=== PATIENT | female | born 1945 | race Caucasian/White ===

== ENCOUNTER 2017-12-27 14:52 | Inpatient (IN) | payer MEDICARE, BC ==
[2017-12-27] VITALS (9 sets, daily range): BP systolic 152–200; BP diastolic 54–89; PULSE 63–78; RESP 15–18; TEMP 97.6–98.6; O2SAT 96–99
[~2017-12-27] VITALS: Ht 162.6 cm; Wt 80.4 kg
[2017-12-27] MEDS ORDERED: FLUD.1 PO (15:32)
[2017-12-27] MEDS ORDERED: LEVO88TA30 PO (15:32)
[2017-12-27] MEDS ORDERED: AMLO2.5T PO (15:32)
[2017-12-27] MEDS ORDERED: ALLO300T2 PO (15:32)
[2017-12-27] MEDS ORDERED: HYDR20TA PO (15:32)
--- NOTE | 2017-12-27 15:35 | PD ---
HPI Chief Complaint: Chest Pain Time Seen by Provider: 15:10 Travel History International Travel<30 days: No Contact w/Intl Traveler<30days: No History of Present Illness HPI 72-year-old female presents to the emergency department complaining of midsternal chest pain that radiates to the back and left arm that started approximately 1-1/2 weeks ago. States that today it worsened and is now constant which is why she presents to the emergency department. States that she she did go to urgent care who recommended she come here to the emergency department. States that deep breaths increases her pain and nothing seems to relieve it. Patient describes the pain as heavy. Patient was given aspirin at the urgent care which seemed to help relieve some of her pain. Patient denies nausea, vomiting, abdominal pain. Patient denies history of clots. Patient does have a history of lung cancer status post lobectomy and a remote history of renal cancer. States that she "does not have any adrenal glands". PFSH Past Medical History Hx Anticoagulant Therapy: No Cardiovascular Problems: Yes (HTN ) Diabetes: No Social History Tobacco Use: No Allergies-Medications (Allergen,Severity, Reaction): Coded Allergies: No Known Allergies (Unverified , 12/27/17) Reported Meds & Prescriptions Reported Meds & Active Scripts Active Reported Allopurinol 300 Mg Tab 300 Mg PO DAILY Amlodipine (Amlodipine Besylate) 2.5 Mg Tab 2.5 Mg PO DAILY Fludrocortisone (Fludrocortisone Acetate) 0.1 Mg Tab 0.1 Mg PO DAILY Hydrocortisone 20 Mg Tab 20 Mg PO DAILY Take with food to decrease GI upset Levoxyl (Levothyroxine Sodium) 88 Mcg Tab 88 Mcg PO DAILY Review of Systems Except as stated in HPI: all other systems reviewed are Neg Physical Exam Narrative GENERAL: Well-developed, well-nourished, lying comfortably in bed SKIN: Warm and dry. HEAD: Atraumatic. Normocephalic. EYES: Pupils equal and round. No scleral icterus. No injection or drainage. ENT: No nasal bleeding or discharge. Mucous membranes pink and moist. NECK: Trachea midline. No JVD. CARDIOVASCULAR: Regular rate and rhythm. RESPIRATORY: No accessory muscle use. Clear to auscultation. Breath sounds equal bilaterally. GASTROINTESTINAL: Abdomen soft, non-tender, nondistended. Hepatic and splenic margins not palpable. MUSCULOSKELETAL: Extremities without clubbing, cyanosis, or edema. No obvious deformities. Mild TTP to chest wall with palpation NEUROLOGICAL: Awake and alert. No obvious cranial nerve deficits. Motor grossly within normal limits. Five out of 5 muscle strength in the arms and legs. Normal speech. PSYCHIATRIC: Appropriate mood and affect; insight and judgment normal. Data Data Last Documented VS Vital Signs Date Time Temp Pulse Resp B/P (MAP) Pulse Ox O2 Delivery O2 Flow Rate FiO2 12/27/17 19:03 185/89 (121) 12/27/17 18:12 74 18 97 12/27/17 15:30 Room Air 12/27/17 15:[address] Pulmonary Angiogram (12/27/17 ) Electrocardiogram (12/27/17 15:18) Ckmb (Isoenzyme) Profile (12/27/17 15:18) Complete Blood Count With Diff (12/27/17 15:18) Comprehensive Metabolic Panel (12/27/17 15:18) D-Dimer (12/27/17 15:18) Prothrombin Time / Inr (Pt) (12/27/17 15:18) Act Partial Throm Time (Ptt) (12/27/17 15:18) Troponin I (12/27/17 15:18) Lipase (12/27/17 15:18) Ecg Monitoring (12/27/17 15:18) Oximetry (12/27/17 15:18) Iohexol 350 Inj (Omnipaque 350 Inj) (12/27/17 17:38) Amlodipine (Norvasc) (12/27/17 18:45) Hydrocortisone (Cortef) (12/27/17 19:15) Hydrocortisone (Cortef) (12/27/17 19:15) Activity Bed Rest With Brp (12/27/17 19:17) Vital Signs (Adult) Q4H (12/27/17 19:17) Cardiac Rhythm .As Directed (12/27/17 19:17) Notify Dr: Other .PRN (12/27/17 19:17) Notify Parameters (12/27/17 19:17) Resp Oxygen Nasal Cannula (12/27/17 ) Ckmb (Isoenzyme) Profile (12/27/17 19:19) Ckmb (Isoenzyme) Profile (12/27/17 22:19) Troponin I (12/27/17 19:17) Troponin I (12/27/17 22:17) Electrocardiogram (12/27/17 19:17) Electrocardiogram (12/27/17 22:17) ^ Obtain (12/27/17 19:17) Sodium Chloride 0.9% Flush (Ns Flush) (12/27/17 19:30) Sodium Chloride 0.9% Flush (Ns Flush) (12/27/17 21:00) Acetaminophen (Tylenol) (12/27/17 19:30) Drill Operator Pneumatic / Telemetry KATELYNN.Q8H (12/27/17 19:17) Admit Order (Ed Use Only) (12/27/17 19:17) Labs Laboratory Tests Test 12/27/17 15:45 White Blood Count 6.9 TH/MM3 Red Blood Count 4.34 MIL/MM3 Hemoglobin 13.5 GM/DL Hematocrit 39.7 % Mean Corpuscular Volume 91.4 FL Mean Corpuscular Hemoglobin 31.1 PG Mean Corpuscular Hemoglobin Concent 34.0 % Red Cell Distribution Width 13.7 % Platelet Count 186 TH/MM3 Mean Platelet Volume 8.5 FL Neutrophils (%) (Auto) 65.7 % Lymphocytes (%) (Auto) 26.3 % Monocytes (%) (Auto) 6.3 % Eosinophils (%) (Auto) 1.1 % Basophils (%) (Auto) 0.6 % Neutrophils # (Auto) 4.5 TH/MM3 Lymphocytes # (Auto) 1.8 TH/MM3 Monocytes # (Auto) 0.4 TH/MM3 Eosinophils # (Auto) 0.1 TH/MM3 Basophils # (Auto) 0.0 TH/MM3 CBC Comment DIFF FINAL Differential Comment Prothrombin Time 10.1 SEC Prothromb Time International Ratio 1.0 RATIO Activated Partial Thromboplast Time 25.0 SEC D-Dimer Quantitative (PE/DVT) 0.54 MG/L FEU Blood Urea Nitrogen 24 MG/DL Creatinine 1.26 MG/DL Random Glucose 108 MG/DL Total Protein 7.9 GM/DL Albumin 3.8 GM/DL Calcium Level 9.5 MG/DL Alkaline Phosphatase 74 U/L Aspartate Amino Transf (AST/SGOT) 21 U/L Alanine Aminotransferase (ALT/SGPT) 16 U/L Total Bilirubin 0.3 MG/DL Sodium Level 138 MEQ/L Potassium Level 4.2 MEQ/L Chloride Level 102 MEQ/L Carbon Dioxide Level 29.8 MEQ/L Anion Gap 6 MEQ/L Estimat Glomerular Filtration Rate 42 ML/MIN Total Creatine Kinase 73 U/L Troponin I 0.02 NG/ML Lipase 152 U/L MDM Medical Decision Making Medical Screen Exam Complete: Yes Emergency Medical Condition: Yes Differential Diagnosis Aortic aneurysm, dissection, NSTEMI, atypical chest pain, angina Narrative Course 72-year-old female presents to the emergency department complaining of midsternal chest pain that radiates to the back and left arm that started approximately 1-1/2 weeks ago. States that today it worsened and is now constant which is why she presents to the emergency department. States that she she did go to urgent care who recommended she come here to the emergency department. States that deep breaths increases her pain and nothing seems to relieve it. Patient describes the pain as heavy. Patient was given aspirin at the urgent care which seemed to help relieve some of her pain. Patient denies nausea, vomiting, abdominal pain. Patient denies history of clots. Patient does have a history of lung cancer status post lobectomy and a remote history of renal cancer. States that she "does not have any adrenal glands". Vital signs-blood pressure steadily elevated as patient was due for her blood pressure medications. Amlodipine administered and blood pressure normalized. Physical exam findings essentially unremarkable. EKG shows sinus rhythm My concerns of the patient's regarding her diagnosis. States that she was concerned about the back pain that she was having and the urgent care mentioned concern of the aorta. I explained that this is why I ordered a CT pulmonary angiography study. I answered all questions and advised to proceed with the imaging study as this would be the most definitive and high yield for our diagnoses. Last Impressions CT Angiography 12/27/17 0000 Signed Impressions: Service Date/Time: Wednesday, December 27, 2017 17:28 - CONCLUSION: 1. No acute cardiopulmonary disease. 2. Coronary artery atherosclerotic calcifications. Stevie Ralph Jr., MD Cardiac enzymes negative. Laboratory Tests Test 12/27/17 15:45 White Blood Count 6.9 TH/MM3 Red Blood Count 4.34 MIL/MM3 Hemoglobin 13.5 GM/DL Hematocrit 39.7 % Mean Corpuscular Volume 91.4 FL Mean Corpuscular Hemoglobin 31.1 PG Mean Corpuscular Hemoglobin Concent 34.0 % Red Cell Distribution Width 13.7 % Platelet Count 186 TH/MM3 Mean Platelet Volume 8.5 FL Neutrophils (%) (Auto) 65.7 % Lymphocytes (%) (Auto) 26.3 % Monocytes (%) (Auto) 6.3 % Eosinophils (%) (Auto) 1.1 % Basophils (%) (Auto) 0.6 % Neutrophils # (Auto) 4.5 TH/MM3 Lymphocytes # (Auto) 1.8 TH/MM3 Monocytes # (Auto) 0.4 TH/MM3 Eosinophils # (Auto) 0.1 TH/MM3 Basophils # (Auto) 0.0 TH/MM3 CBC Comment DIFF FINAL Differential Comment Prothrombin Time 10.1 SEC Prothromb Time International Ratio 1.0 RATIO Activated Partial Thromboplast Time 25.0 SEC D-Dimer Quantitative (PE/DVT) 0.54 MG/L FEU Blood Urea Nitrogen 24 MG/DL Creatinine 1.26 MG/DL Random Glucose 108 MG/DL Total Protein 7.9 GM/DL Albumin 3.8 GM/DL Calcium Level 9.5 MG/DL Alkaline Phosphatase 74 U/L Aspartate Amino Transf (AST/SGOT) 21 U/L Alanine Aminotransferase (ALT/SGPT) 16 U/L Total Bilirubin 0.3 MG/DL Sodium Level 138 MEQ/L Potassium Level 4.2 MEQ/L Chloride Level 102 MEQ/L Carbon Dioxide Level 29.8 MEQ/L Anion Gap 6 MEQ/L Estimat Glomerular Filtration Rate 42 ML/MIN Total Creatine Kinase 73 U/L Troponin I 0.02 NG/ML Lipase 152 U/L Patient took an aspirin today. I once again explained the need for labs and additional monitoring. I explained in depth the findings of the CT pulmonary angiogram and the lab findings. I agreed to allow the patient to have her results although I stated that this was not the normal process of obtaining records. After thorough discussion and convincing, patient agrees to be admitted for observation of the chest pain center. I explained the need for this as they may perform additional tests to rule out further cardiac disease. I once again explained that the CT demonstrated coronary artery calcifications and this could be the cause of her pain. Patient was concerned because her is in the home status post CVA. Patient states understanding of all the information above and agrees for admission to the [facility]. Second troponin read elevated. Pt will be admitted to Dr. Garcia. Diagnosis Primary Impression: Non-STEMI (non-ST elevated myocardial infarction) Admitting Information Admitting Physician Requests: Observation Condition: Stable Brunilda Brito Dec 27, 2017 15:35
[2017-12-27 16:25] LABS: AUTOMATED NEUTROPHIL # 4.5 TH/MM3 (1.8-7.7); BASOPHIL % 0.6 % (0.0-2.0); EOSINOPHIL # 0.1 TH/MM3 (0-0.4); EOSINOPHIL % 1.1 % (0.0-4.0); HEMATOCRIT 39.7 % (35.0-46.0); HEMOGLOBIN 13.5 GM/DL (11.6-15.3); LYMPH % 26.3 % (9.0-44.0); LYMPHOCYTE # 1.8 TH/MM3 (1.0-4.8); MEAN CELL VOLUME 91.4 FL (80.0-100.0); MEAN CORPUSCULAR HEMOGLOBIN 31.1 PG (27.0-34.0); MEAN PLATELET VOLUME 8.5 FL (7.0-11.0); MONO % 6.3 % (0.0-8.0); MONOCYTE # 0.4 TH/MM3 (0-0.9); NEUT % 65.7 % (16.0-70.0); PLATELET COUNT 186 TH/MM3 (150-450); RED BLOOD COUNT 4.34 MIL/MM3 (4.00-5.30); RED CELL DISTRIBUTION WIDTH 13.7 % (11.6-17.2); WHITE BLOOD COUNT 6.9 TH/MM3 (4.0-11.0)
[2017-12-27 16:39] LABS: PROTHROMBIN TIME - PATIENT 10.1 SEC (9.8-11.6)
[2017-12-27 16:44] LABS: ALBUMIN 3.8 GM/DL (3.4-5.0); ALT (GPT) 16 U/L (10-53); AST (GOT) 21 U/L (15-37); BICARBONATE 29.8 MEQ/L (21.0-32.0); BLOOD UREA NITROGEN 24 MG/DL (7-18); CALCIUM 9.5 MG/DL (8.5-10.1); CHLORIDE 102 MEQ/L (98-107); CREATININE 1.26 MG/DL (0.50-1.00); GLOMERULAR FILTRATION RATE 42 ML/MIN (>89); GLUCOSE,RANDOM 108 MG/DL (74-106); SODIUM (NA) 138 MEQ/L (136-145)
[2017-12-27 16:48] LABS: ALKALINE PHOSPHATASE 74 U/L (45-117); TOTAL BILIRUBIN ADULT 0.3 MG/DL (0.2-1.0); TOTAL PROTEIN 7.9 GM/DL (6.4-8.2); TROPONIN I 0.02 NG/ML (0.02-0.05)
[2017-12-27 16:52] LABS: D-DIMER 0.54 MG/L FEU (0.00-0.50)
[2017-12-27] MEDS ORDERED: IOHEXOL 350 MG/ML 10 ML VIAL (for RAD DIAG) IVCONTRAST ONE (17:38)
--- NOTE | 2017-12-27 17:43 | RADRPT ---
EXAM DATE/TIME: 12/27/2017 17:28 [place] COMPARISON: No previous studies available for comparison. INDICATIONS : Chest pain, elevated d dimer. IV CONTRAST: 75 cc Omnipaque 350 (iohexol) IV RADIATION DOSE: 21.10 CTDIvol (mGy) MEDICAL HISTORY : Hypertension. Carcinoma, lung. CA KIDNEY SURGICAL HISTORY : Nephrectomy, left. Appendectomy.Cholecystectomy.Rt adrenal ENCOUNTER: Initial ACUITY: 1 day PAIN SCALE: 6/10 LOCATION: Chest TECHNIQUE: Volumetric scanning of the chest was performed using a pulmonary embolism protocol MIP images were re constructed. Using automated exposure control and adjustment of the mA and/or kV according to patien t size, radiation dose was kept as low as reasonably achievable to obtain optimal diagnostic quality images. DICOM format image data is available electronically for review and comparison. Follow-up recommendations for detected pulmonary nodules are based at a minimum on nodule size and pa tient risk factors according to Fleischner Society Guidelines. FINDINGS: PULMONARY ARTERIES: No filling defects are seen in the pulmonary arteries through the segmental level. LUNGS: There is no consolidation or pneumothorax . No concerning pulmonary nodule is visualized. Surgical c lips and linear scarring within the medial right lung base. PLEURAE: There is no pleural thickening or pleural effusion. MEDIASTINUM: There is good visualization of the great vessels of the middle mediastinum. Coronary artery atheroscl erotic calcifications. No evidence of mediastinal or hilar adenopathy/mass. MUSCULOSKELETAL: Within normal limits for patient age. MISCELLANEOUS: The visualized upper abdominal organs demonstrate no acute abnormality. CONCLUSION: 1. No acute cardiopulmonary disease. 2. Coronary artery atherosclerotic calcifications. Stevie Ralph Jr., MD on December 27, 2017 at 17:37 Board Certified Radiologist. This report was verified electronically.
[2017-12-27] MEDS ORDERED: amLODIPine BESYLATE 5 MG TAB PO ONE (18:45)
[2017-12-27] MEDS ORDERED: HYDROCORTISONE 10 MG TAB PO ONE ×2 (19:15)
[2017-12-27] MEDS ORDERED: ACETAMINOPHEN 500 MG CPLT PO PRN (19:30)
[2017-12-27] MEDS ORDERED: SODIUM CHLORIDE 0.9% FLUSH 10 ML FLUSH IV FLUSH PRN ×2 (19:30→21:30)
[2017-12-27 20:28] LABS: TROPONIN I 0.12 NG/ML (0.02-0.05)
[2017-12-27] MEDS ORDERED: SODIUM CHLORIDE 0.9% FLUSH 10 ML FLUSH IV FLUSH SCH (21:00)
[2017-12-27] MEDS ORDERED: HEPARIN SODIUM - IV 10,000 UNITS/10 ML VIAL IV ONE (21:15)
[2017-12-27] MEDS ORDERED: MORPHINE SULFATE 2 MG/ML INJ IV PUSH PRN (21:30)
[2017-12-27] MEDS: HEPARIN-D5W 25,000 U/250 ML 250 ML IV PRN (21:51)
[2017-12-27 22:11] LABS: HEMATOCRIT 37.8 % (35.0-46.0); HEMOGLOBIN 12.7 GM/DL (11.6-15.3); MEAN CELL VOLUME 90.5 FL (80.0-100.0); MEAN CORPUSCULAR HEMOGLOBIN 30.5 PG (27.0-34.0); MEAN CORPUSCULAR HGB CONC 33.7 % (32.0-36.0); MEAN PLATELET VOLUME 8.2 FL (7.0-11.0); PLATELET COUNT 184 TH/MM3 (150-450); RED BLOOD COUNT 4.17 MIL/MM3 (4.00-5.30); RED CELL DISTRIBUTION WIDTH 13.8 % (11.6-17.2); WHITE BLOOD COUNT 5.7 TH/MM3 (4.0-11.0)
[2017-12-27] MEDS: HYDROCORTISONE 10 MG TAB PO SCH (22:15)
[2017-12-27] MEDS: SODIUM CHLOR 0.9% 1000 ML INJ 1,000 ML IV SCH (22:17)
--- NOTE | 2017-12-27 22:18 | HHI.HP ---
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 The patient endorses substernal chest pain/pressure that radiates to between her shoulder blades for the past 1.5 weeks. She states it is normally intermittent but today it became progressively much worse. She endorses accompanying shortness of breath. Denies diaphoresis. Denies fever/ chills or systemic symptoms. Review of Systems Except as stated in HPI: all other systems reviewed are Neg Past Family Social History Past Medical History Primary adrenal insufficiency secondary to bilateral adrenalectomy History of renal cell carcinoma Hypertension Hypothyroid Gout Past Surgical History Left nephrectomy Bilateral adrenalectomy Right lung nodule removal Cholecystectomy Appendectomy Hernia repair Reported Medications Reported Meds & Active Scripts Active Reported Allopurinol 300 Mg Tab 300 Mg PO DAILY Amlodipine (Amlodipine Besylate) 2.5 Mg Tab 2.5 Mg PO DAILY Fludrocortisone (Fludrocortisone Acetate) 0.1 Mg Tab 0.1 Mg PO DAILY Hydrocortisone 20 Mg Tab 20 Mg PO DAILY Take with food to decrease GI upset Levoxyl (Levothyroxine Sodium) 88 Mcg Tab 88 Mcg PO DAILY Allergies: Coded Allergies: No Known Allergies (Unverified , 12/27/17) Family History Father with CAD, of MA at age 52 Social History Denies alcohol, tobacco and illicit drugs. Physical Exam Vital Signs Vital Signs Date Time Temp Pulse Resp B/P (MAP) Pulse Ox O2 Delivery O2 Flow Rate FiO2 12/27/17 21:52 12/27/17 20:28 66 16 174/54 (94) 97 12/27/17 19:57 97 21 12/27/17 19:03 185/89 (121) 12/27/17 18:12 74 18 200/80 (120) 97 12/27/17 15:30 Room Air 2/2/18 15:15 74 18 163/80 (107) 98 Room Air 12/27/17 15:08 98.2 76 15 163/80 (107) 97 12/27/17 14:56 98.2 78 18 183/81 (115) 99 Room Air Physical Exam GENERAL: female sitting up in bed SKIN: No rashes, ecchymoses or lesions. Cool and dry. HEAD: Atraumatic. Normocephalic. No temporal or scalp tenderness. EYES: Pupils equal round and reactive. Extraocular motions intact. No scleral icterus. No injection or drainage. ENT: Nose without bleeding, purulent drainage or septal hematoma. Throat without erythema, tonsillar hypertrophy or exudate. Uvula midline. Airway patent. NECK: Trachea midline. No JVD or lymphadenopathy. Supple, nontender, no meningeal signs. CARDIOVASCULAR: Regular rate and rhythm without murmurs, gallops, or rubs. RESPIRATORY: Clear to auscultation. Breath sounds equal bilaterally. No wheezes , rales, or rhonchi. GASTROINTESTINAL: Abdomen soft, non-tender, nondistended. No hepato-splenomegaly , or palpable masses. No guarding. MUSCULOSKELETAL: Extremities without clubbing, cyanosis, or edema. No joint tenderness, effusion, or edema noted. No calf tenderness. NEUROLOGICAL: Awake and alert. Cranial nerves II through XII intact. Motor and sensory grossly within normal limits. Normal speech. Laboratory Laboratory Tests Test 12/27/17 15:45 12/27/17 19:41 12/27/17 21:50 White Blood Count 6.9 5.7 Red Blood Count 4.34 4.17 Hemoglobin 13.5 12.7 Hematocrit 39.7 37.8 Mean Corpuscular Volume 91.4 90.5 Mean Corpuscular Hemoglobin 31.1 30.5 Mean Corpuscular Hemoglobin Concent 34.0 33.7 Red Cell Distribution Width 13.7 13.8 Platelet Count 186 184 Mean Platelet Volume 8.5 8.2 Neutrophils (%) (Auto) 65.7 Lymphocytes (%) (Auto) 26.3 Monocytes (%) (Auto) 6.3 Eosinophils (%) (Auto) 1.1 Basophils (%) (Auto) 0.6 Neutrophils # (Auto) 4.5 Lymphocytes # (Auto) 1.8 Monocytes # (Auto) 0.4 Eosinophils # (Auto) 0.1 Basophils # (Auto) 0.0 CBC Comment DIFF FINAL Differential Comment Prothrombin Time 10.1 Prothromb Time International Ratio 1.0 Activated Partial Thromboplast Time 25.0 D-Dimer Quantitative (PE/DVT) 0.54 Blood Urea Nitrogen 24 Creatinine 1.26 Random Glucose 108 Total Protein 7.9 Albumin 3.8 Calcium Level 9.5 Alkaline Phosphatase 74 Aspartate Amino Transf (AST/SGOT) 21 Alanine Aminotransferase (ALT/SGPT) 16 Total Bilirubin 0.3 Sodium Level 138 Potassium Level 4.2 Chloride Level 102 Carbon Dioxide Level 29.8 Anion Gap 6 Estimat Glomerular Filtration Rate 42 Total Creatine Kinase 73 66 Troponin I 0.02 0.12 Lipase 152 Result Diagram: 12/27/17 1545 12/27/17 1545 Caprini VTE Risk Assessment Caprini VTE Risk Assessment: Mod/High Risk (score >= 2) Caprini Risk Assessment Model Point Value = 1 Point Value = 2 Point Value = 3 Point Value = 5 Age 41-60 Minor surgery BMI > 25 kg/m2 Swollen legs Varicose veins or History of unexplained or recurrent spontaneous Oral contraceptives or hormone replacement Sepsis (< 1 month) Serious lung disease, including pneumonia (< 1 month) Abnormal pulmonary function Acute myocardial infarction Congestive heart failure (< 1 month) History of inflammatory bowel disease Medical patient at bed rest Age 61-74 Arthroscopic surgery Major open surgery (> 45 min) Laparoscopic surgery (> 45 min) Malignancy Confined to bed (> 72 hours) Immobilizing plaster cast Central venous access Age >= 75 History of VTE Family history of VTE Factor V Leiden Prothrombin [id number] Lupus anticoagulant Anticardiolipin antibodies Elevated serum homocysteine Heparin-induced thrombocytopenia Other congenital or acquired thrombophilia Stroke (< 1 month) Elective arthroplasty Hip, pelvis, or leg fracture Acute spinal cord injury (< 1 month) Prophylaxis Regimen Total Risk Factor Score Risk Level Prophylaxis Regimen 0-1 Low Early ambulation 2 Moderate Order ONE of the following: *Sequential Compression Device (SCD) *Heparin 5000 units SQ BID 3-4 Higher Order ONE of the following medications: *Heparin 5000 units SQ TID *Enoxaparin/Lovenox 40 mg SQ daily (WT < 150 kg, CrCl > 30 mL/min) *Enoxaparin/Lovenox 30 mg SQ daily (WT < 150 kg, CrCl > 10-29 mL/min) *Enoxaparin/Lovenox 30 mg SQ BID (WT < 150 kg, CrCl > 30 mL/min) AND/OR *Sequential Compression Device (SCD) 5 or more Highest Order ONE of the following medications: *Heparin 5000 units SQ TID (Preferred with Epidurals) *Enoxaparin/Lovenox 40 mg SQ daily (WT < 150 kg, CrCl > 30 mL/min) *Enoxaparin/Lovenox 30 mg SQ daily (WT < 150 kg, CrCl > 10-29 mL/min) *Enoxaparin/Lovenox 30 mg SQ BID (WT < 150 kg, CrCl > 30 mL/min) AND *Sequential Compression Device (SCD) Assessment and Plan Assessment and Plan Assessment/plan: 1. NSTEMI/CP/SOB Initial troponin 0.02, repeat 0.12 Issue with active chest pain that radiates to her back EKG shows normal sinus rhythm without ST segment elevations or depressions, personally reviewed Heparin drip Aspirin, Plavix, metoprolol, morphine Cardiology consulted, appreciate recommendations 2. Primary adrenal insufficiency Patient status post bilateral adrenalectomy Home medications include hydrocortisone and fludrocortisone Given patient is having unstable angina versus [place] will give stress dose steroids ; hydrocortisone 100 mg by mouth every 8 hours 3. CKD Patient status post left nephrectomy, baseline creatinine unknown Creatinine 1.26 Avoid nephrotoxic agents Monitor renal function 4. Hypertension/hypothyroidism Continue home medication FEN NPO Physician Certification 2 Midnight Certification Type: Admission for Inpatient Services Order for Inpatient Services The services are ordered in accordance with Medicare regulations or non- Medicare payer requirements, as applicable. In the case of services not specified as inpatient-only, they are appropriately provided as inpatient services in accordance with the 2-midnight benchmark. Estimated LOS (days): 2 2 days is the estimated time the patient will need to remain in the hospital, assuming treatment plan goals are met and no additional complications. Post-Hospital Plan: Not yet determined Yen Garcia MD Dec 27, 2017 22:18
[2017-12-27 22:20] LABS: PROTHROMBIN TIME - PATIENT 10.2 SEC (9.8-11.6)
[2017-12-27 22:29] LABS: TROPONIN I 0.15 NG/ML (0.02-0.05)
[2017-12-27] MEDS: ASPIRIN 325 MG TAB PO SCH (22:39)
[2017-12-27] MEDS: CLOPIDOGREL 75 MG TAB PO SCH (22:39)
[2017-12-28] VITALS (8 sets, daily range): BP systolic 112–152; BP diastolic 55–84; PULSE 63–70; RESP 16–20; TEMP 97.6–98.4; O2SAT 93–98
[2017-12-28] MEDS ORDERED: HEPARIN SODIUM - IV 10,000 UNITS/10 ML VIAL IV PRN ×2 (03:15)
[2017-12-28 05:02] LABS: AUTOMATED NEUTROPHIL # 3.1 TH/MM3 (1.8-7.7); BASOPHIL % 0.5 % (0.0-2.0); EOSINOPHIL # 0.1 TH/MM3 (0-0.4); EOSINOPHIL % 2.1 % (0.0-4.0); HEMATOCRIT 38.1 % (35.0-46.0); HEMOGLOBIN 12.9 GM/DL (11.6-15.3); LYMPH % 36.7 % (9.0-44.0); LYMPHOCYTE # 2.1 TH/MM3 (1.0-4.8); MEAN CELL VOLUME 90.5 FL (80.0-100.0); MEAN CORPUSCULAR HEMOGLOBIN 30.5 PG (27.0-34.0); MEAN CORPUSCULAR HGB CONC 33.7 % (32.0-36.0); MEAN PLATELET VOLUME 8.7 FL (7.0-11.0); MONO % 7.9 % (0.0-8.0); MONOCYTE # 0.5 TH/MM3 (0-0.9); NEUT % 52.8 % (16.0-70.0); PLATELET COUNT 180 TH/MM3 (150-450); RED BLOOD COUNT 4.21 MIL/MM3 (4.00-5.30); WHITE BLOOD COUNT 5.8 TH/MM3 (4.0-11.0)
[2017-12-28 05:51] LABS: CALCIUM 8.7 MG/DL (8.5-10.1); CREATININE 1.01 MG/DL (0.50-1.00)
[2017-12-28] MEDS: NITROGLYCERIN 2% OINT 1 GM PACKET TOP SCH ×5 (06:00→23:36)
[2017-12-28] MEDS: HYDROCORTISONE 10 MG TAB PO SCH ×3 (06:00→20:54)
[2017-12-28] MEDS: LEVOTHYROXINE SODIUM 88 MCG TAB PO SCH (06:17)
[2017-12-28] MEDS: SODIUM CHLORIDE 0.9% FLUSH 10 ML FLUSH IV FLUSH SCH ×2 (07:21→20:47)
[2017-12-28] MEDS: ALLOPURINOL 300 MG TAB PO SCH (08:38)
[2017-12-28] MEDS: METOPROLOL TARTRATE 25 MG TAB PO SCH ×2 (08:38→20:47)
[2017-12-28] MEDS: FLUDROCORTISONE ACETATE 0.1 MG TAB PO SCH (08:38)
[2017-12-28] MEDS: amLODIPine BESYLATE 5 MG TAB PO SCH (08:39)
[2017-12-28] MEDS: SODIUM CHLOR 0.9% 1000 ML INJ 1,000 ML IV SCH ×4 (08:39→23:00)
[2017-12-28] MEDS: ASPIRIN 325 MG TAB PO SCH (08:39)
[2017-12-28] MEDS: PANTOPRAZOLE SOD 40 MG DELAYED RELEASE TAB PO SCH (08:39)
[2017-12-28] MEDS: CLOPIDOGREL 75 MG TAB PO SCH (08:39)
[2017-12-28] MEDS ORDERED: HYDROCORTISONE 10 MG TAB PO SCH (09:00)
[2017-12-28] MEDS: ACETAMINOPHEN 500 MG CPLT PO PRN (09:31)
--- NOTE | 2017-12-28 12:36 | HHI.PR ---
Subjective Remarks Patient says she is feeling all right. Reports chest pain has resolved. Objective Vital Signs Date Time Temp Pulse Resp B/P (MAP) Pulse Ox O2 Delivery O2 Flow Rate FiO2 12/28/17 10:04 97 12/28/17 08:37 98.4 70 17 148/84 (105) 97 12/28/17 04:18 97.8 64 16 152/66 (94) 93 12/28/17 03:44 63 12/28/17 00:15 97.8 69 16 148/72 (97) 98 12/27/17 23:45 63 12/27/17 22:41 Room Air 12/27/17 22:05 98.6 67 16 152/74 (100) 96 12/27/17 22:05 97.6 67 16 152/74 (100) 96 12/27/17 21:52 12/27/17 20:28 66 16 174/54 (94) 97 12/27/17 19:57 97 21 12/27/17 19:03 185/89 (121) 12/27/17 18:12 74 18 200/80 (120) 97 12/27/17 15:30 Room Air 12/27/17 15:15 74 18 163/80 (107) 98 Room Air 12/27/17 15:08 98.2 76 15 163/80 (107) 97 12/27/17 14:56 98.2 78 18 183/81 (115) 99 Room Air I/O 12/27/17 12/27/17 12/27/17 12/28/17 12/28/17 12/28/17 07:00 15:00 23:00 07:00 15:00 23:00 Intake Total 967.1 ml Output Total 700 ml Balance 267.1 ml Intake Oral 200 ml IV Total 767.1 ml Output Urine Total 700 ml # Bowel Movements 0 Result Diagram: 12/28/17 0351 12/28/17 0351 Objective Remarks GENERAL: Incision sitting up in bed. Appears comfortable. SKIN: Warm and dry. HEAD: Normocephalic. EYES: No scleral icterus. No injection or drainage. NECK: Supple, trachea midline. No JVD CARDIOVASCULAR: Regular rate and rhythm without murmurs, gallops, or rubs. RESPIRATORY: Breath sounds equal bilaterally. No accessory muscle use. GASTROINTESTINAL: Abdomen soft, non-tender, nondistended. MUSCULOSKELETAL: No cyanosis, or edema. BACK: Nontender without obvious deformity. No CVA tenderness. A/P Assessment and Plan //NSTEMI/CP/SOB Initial troponin 0.02, repeat 0.12 Issue with active chest pain that radiates to her back EKG shows normal sinus rhythm without ST segment elevations or depressions, personally reviewed Heparin drip Aspirin, Plavix, metoprolol, morphine Cardiology consulted, appreciate recommendations = Troponin up to 0.15, however chest pain resolved currently. Tinea medications as ordered. Cardiology following. Appreciate assistance. //Primary adrenal insufficiency Patient status post bilateral adrenalectomy Home medications include hydrocortisone and fludrocortisone Given patient is having unstable angina versus [place] will give stress dose steroids ; hydrocortisone 100 mg by mouth every 8 hours = 2/3. Blood pressure acceptable. Decrease hydrocortisone to 50 mg by mouth every 8 hours. Plan to taper tomorrow further. //CKD Patient status post left nephrectomy, baseline creatinine unknown Creatinine 1.26 Avoid nephrotoxic agents Monitor renal function = Creatinine 1.0 improved. monitor. //Hypertension/hypothyroidism Continue home medication Discharge Planning Planned cardiac catheter as per cardiology. Expect discharge home after cardiac cath Brent Jackson MD Dec 28, 2017 12:36
--- NOTE | 2017-12-28 12:43 | MB ---
cc: JULIO KEANE MD DATE OF CONSULTATION: 12/28/2017 REASON FOR CONSULTATION: Non-S-T elevation myocardial infarction. HISTORY OF PRESENT ILLNESS: The patient is a very pleasant 72-year-old woman with no prior cardiac history though she does say she had a cardiac catheterization many, many years ago which apparently was normal following an apparently abnormal stress test. She does have a history of renal cell carcinoma status post left kidney resection as well as a bilateral renal resection The patient presents with what seems like quite a long time of central back pain but over the last several weeks it has been accompanied by a more central chest "discomfort". It is difficult to ascertain whether these are one or two different symptoms from the patient as they do seem to co-mingle. She says that over the last 24-36 hours these symptoms have been essentially continuous and she cannot tell me any exacerbating or relieving activities. PAST MEDICAL HISTORY: As above. CURRENT MEDICATIONS: 1. Heparin drip. 2. Florinef. 3. Hydrocortisone. 4. Lopressor 25 milligrams twice a day. 5. Protonix. 6. Allopurinol. 7. Amlodipine. 8. Synthroid. 9. Aspirin. 10. Plavix. ALLERGIES: NO KNOWN DRUG ALLERGIES. PHYSICAL EXAMINATION: VITAL SIGNS: Afebrile, pulse 70, respiratory rate 17, blood pressure 148/84, satting 97%. GENERAL: A pleasant well-appearing woman in no distress. NECK: No jugular venous distention. LUNGS: Clear to auscultation bilaterally. CARDIOVASCULAR: Regular rhythm. No murmurs appreciated. ABDOMEN: Benign. EXTREMITIES: No edema. LABORATORY DATA: White count 5.8, hematocrit 38.1, platelets 180,000. Sodium 140, potassium 3.7, chloride 105, bicarbonate 27, BUN 23, creatinine 1.01. Troponin is 0.02, 0.12, 0.15. EKGS: EKG shows sinus rhythm with no significant S-T or T wave changes. IMPRESSION: 1. Elevated troponin: The patient's slight elevation in troponin with her chest pain does make acute coronary syndrome a reasonable possibility; however, her symptoms are somewhat unusual given they have been ongoing for quite some time. I do think given the elevated troponin and chest pain that a cardiac catheterization is probably the best way to go about truly evaluating her coronary arteries and Dr. Mireya will perform this procedure Saturday morning, or sooner should her clinical condition change. In the meanwhile, she will be continued on her medical therapy including her heparin drip. She is essentially chest pain-free now, though she still has her central back pain that is relieved by morphine and that has been ongoing since at least this past summer and I suspect that that is musculoskeletal and unrelated to her current presentation. Further recommendations shall be based on her cardiac catheterization and her clinical course. Thank you again for the opportunity to participate in this patient's care. MD ESTEFANI Webster/BROOKS /10:44 AM /12:32 PM
[2017-12-28] MEDS ORDERED: diphenhydrAMINE HCL 50 MG CAP PO SCH (13:30)
[2017-12-28] MEDS ORDERED: DIAZEPAM 10 MG TAB PO SCH (13:30)
[2017-12-28] MEDS ORDERED: MIDAZOLAM HCL 2 MG/2 ML VIAL IV PUSH SCH (13:30)
--- NOTE | 2017-12-28 13:43 | MB ---
cc: COLLIN BARROSO M.D. DATE OF CONSULTATION: 12/28/2017. REASON FOR CONSULTATION: Interventional cardiology consultation for cardiac catheterization. HISTORY OF PRESENT ILLNESS: The patient is a 72-year-old white female with a history of renal and adrenal cancers, hypertension, hypothyroidism who was in her usual state of health up until about ten days ago when she began to experience intermittent episodes of substernal chest "pressure" with some radiation to her back. Initially the episodes were lasting no longer than twenty minutes. However, two nights ago she had an episode that lasted two hours and then yesterday it lasted several hours. Yesterday she had a sensation of dyspnea without nausea or diaphoresis. The patient denies pleurisy, syncope, near syncope, palpitations, pedal edema, paroxysmal nocturnal dyspnea. She had some recurrent chest discomfort again early this morning lasting a few minutes. PAST MEDICAL HISTORY: 1. Renal cancer status post left nephrectomy in 2004. 2. Hypertension. 3. Gout. 4. Hypothyroidism. 5. Adrenal cancer status post right adrenalectomy in 2008. 6. 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 CURRENT CARDIAC MEDICATIONS: 1. Metoprolol 25 milligrams p.o. twice a day. 2. Amlodipine 2.5 milligrams p.o. daily. 3. Nitro paste one inch q. 6 hours. 4. Aspirin 325 milligrams p.o. daily. 5. Clopidogrel 75 milligrams p.o. daily. 6. Heparin drip. ALLERGIES: NO KNOWN DRUG ALLERGIES. FAMILY HISTORY: Noncontributory. SOCIAL HISTORY: The patient denies any history of alcohol or tobacco abuse. REVIEW OF SYSTEMS: Review of systems as in the history of present illness otherwise negative or noncontributory. She also denies abdominal pain, melena, dyspepsia, bright red blood per rectum, wheezing. PHYSICAL EXAMINATION: VITAL SIGNS: On physical examination, her blood pressure 148/84 with a pulse of 70, respirations 17. GENERAL: In general, she is a well-developed, well-nourished white female in no acute distress. HEAD, EYES, EARS, NOSE, THROAT: On HEENT examination, jugular venous pressure is normal. Carotid pulses are 2+ bilaterally and without bruits. CHEST: Examination of the chest reveals clear lung cruz. CARDIAC: On cardiac examination, she has a regular rhythm and rate without S3, S4 or murmur. ABDOMEN: On abdominal examination, she has a soft, nontender abdomen. Bowel sounds are present. There is no definite hepatosplenomegaly. EXTREMITIES: No cyanosis, clubbing or edema. EKGS: EKG from 12/27/17 at 3:12 p.m. shows sinus rhythm, nonspecific ST depression. EKG from 12/27/17 at 7:43 p.m. shows resolution of the ST segment changes. LABORATORY DATA: BUN 23, creatinine 1.01, potassium 3.7. Troponin 0.15. CK 73. IMPRESSION: Abnormal troponin levels in this 72-year-old white female with history of adrenal cancer, renal cancer, hypertension, hypothyroidism. Some of her chest pains in the last ten days are atypical for myocardial ischemia with negative CK levels despite prolonged chest discomfort the past 48 hours. Some of her symptoms are indeed suggestive of unstable angina, and she does have dynamic ST segment changes on EKG as well as slightly abnormal troponin levels. At this point, I would agree with cardiac catheterization. The nature of this procedure and the potential risks including but not limited to , myocardial infarction, stroke, arrhythmia, bleeding, infection and renal failure have been outlined to the patient. She agrees to proceed. RECOMMENDATIONS: 1. Cardiac catheterization on Saturday. 2. Will stop the clopidogrel for now. MD RITESH Carmichael/BROOKS /1:14 PM /1:20 PM VALE
--- NOTE | 2017-12-28 14:17 | EKG ---
Date Performed: 12/27/2017 Time Performed: 19:43:37 PTAGE: 72 years EKG: Sinus rhythm When compared to previous tracing, QRS voltage in the precordial Leads has returned to normal. JOAQUIN L ECG PREVIOUS TRACING : 12/27/2017 15.12 DOCTOR: Lee Benz Interpretating Date/Time 12/28/2017 14:16:45
--- NOTE | 2017-12-28 14:17 | EKG ---
Date Performed: 12/27/2017 Time Performed: 15:12:38 PTAGE: 72 years EKG: Sinus rhythm LOW QRS VOLTAGE IN PRECORDIAL LEADS BORDERLINE ECG NO PREVIOUS TRACING DOCTOR: Lee Benz Interpretating Date/Time 12/28/2017 14:15:46
[2017-12-28] MEDS: HEPARIN-D5W 25,000 U/250 ML 250 ML IV PRN (20:50)
[2017-12-29] VITALS (14 sets, daily range): BP systolic 119–148; BP diastolic 66–75; PULSE 57–69; RESP 16–20; TEMP 97.4–97.9; O2SAT 94–99
[2017-12-29] MEDS: SODIUM CHLOR 0.9% 1000 ML INJ 1,000 ML IV SCH ×2 (05:38→08:39)
[2017-12-29] MEDS: HYDROCORTISONE 10 MG TAB PO SCH ×3 (05:38→21:14)
[2017-12-29] MEDS: NITROGLYCERIN 2% OINT 1 GM PACKET TOP SCH ×4 (05:38→23:27)
[2017-12-29] MEDS: LEVOTHYROXINE SODIUM 88 MCG TAB PO SCH (06:00)
[2017-12-29 07:16] LABS: AUTOMATED NEUTROPHIL # 3.5 TH/MM3 (1.8-7.7); BASOPHIL % 0.3 % (0.0-2.0); EOSINOPHIL # 0.1 TH/MM3 (0-0.4); EOSINOPHIL % 1.9 % (0.0-4.0); HEMATOCRIT 36.6 % (35.0-46.0); HEMOGLOBIN 12.6 GM/DL (11.6-15.3); LYMPH % 30.1 % (9.0-44.0); LYMPHOCYTE # 1.7 TH/MM3 (1.0-4.8); MEAN CELL VOLUME 90.4 FL (80.0-100.0); MEAN CORPUSCULAR HEMOGLOBIN 31.1 PG (27.0-34.0); MEAN CORPUSCULAR HGB CONC 34.4 % (32.0-36.0); MEAN PLATELET VOLUME 8.5 FL (7.0-11.0); MONO % 6.9 % (0.0-8.0); MONOCYTE # 0.4 TH/MM3 (0-0.9); NEUT % 60.8 % (16.0-70.0); PLATELET COUNT 163 TH/MM3 (150-450); RED BLOOD COUNT 4.05 MIL/MM3 (4.00-5.30); RED CELL DISTRIBUTION WIDTH 13.7 % (11.6-17.2); WHITE BLOOD COUNT 5.7 TH/MM3 (4.0-11.0)
[2017-12-29 07:39] LABS: BICARBONATE 27.4 MEQ/L (21.0-32.0); CREATININE 1.12 MG/DL (0.50-1.00)
[2017-12-29] MEDS: ASPIRIN 325 MG TAB PO SCH (08:27)
[2017-12-29] MEDS: ALLOPURINOL 300 MG TAB PO SCH (08:27)
[2017-12-29] MEDS: PANTOPRAZOLE SOD 40 MG DELAYED RELEASE TAB PO SCH (08:27)
[2017-12-29] MEDS: FLUDROCORTISONE ACETATE 0.1 MG TAB PO SCH (08:27)
[2017-12-29] MEDS: METOPROLOL TARTRATE 25 MG TAB PO SCH ×2 (08:27→21:14)
[2017-12-29] MEDS: amLODIPine BESYLATE 5 MG TAB PO SCH (08:27)
[2017-12-29] MEDS: ACETAMINOPHEN 500 MG CPLT PO PRN ×2 (08:30→13:44)
[2017-12-29] MEDS: SODIUM CHLORIDE 0.9% FLUSH 10 ML FLUSH IV FLUSH SCH ×2 (08:39→21:00)
--- NOTE | 2017-12-29 10:42 | HHI.PR ---
Subjective Remarks seen this morning. Denies any chest pain or shortness breath. Denies any nausea or vomiting. She is feeling all right. She requests further tapering of hydrocortisone. She does support slight constipation or denies any abdominal pain. Objective Vital Signs Date Time Temp Pulse Resp B/P (MAP) Pulse Ox O2 Delivery O2 Flow Rate FiO2 12/29/17 08:17 98 21 12/29/17 08:00 Room Air 12/29/17 07:46 65 12/29/17 04:40 97.4 64 16 137/66 (89) 97 12/29/17 04:00 Room Air 12/29/17 03:48 61 12/29/17 00:18 97.5 68 18 119/68 (85) 96 12/29/17 00:00 62 12/29/17 00:00 Room Air 12/28/17 20:10 63 12/28/17 20:00 Room Air 12/28/17 16:04 97.6 66 20 112/55 (74) 95 12/28/17 12:04 97.8 69 20 125/60 (81) 94 I/O 12/28/17 12/28/17 12/28/17 12/29/17 12/29/17 12/29/17 06:59 14:59 22:59 06:59 14:59 22:59 Intake Total 967.1 ml 1564 ml 1000 ml Output Total 700 ml 1000 ml 700 ml Balance 267.1 ml 564 ml 300 ml Intake Oral 200 ml 420 ml IV Total 767.1 ml 1144 ml 1000 ml Output Urine Total 700 ml 1000 ml 700 ml # Bowel Movements 0 0 Result Diagram: 12/29/1761112/29/17 06 Objective Remarks GENERAL: sitting up in bed. Appears comfortable. no change on exam SKIN: Warm and dry. HEAD: Normocephalic. EYES: No scleral icterus. No injection or drainage. NECK: Supple, trachea midline. No JVD CARDIOVASCULAR: Regular rate and rhythm without murmurs, gallops, or rubs. RESPIRATORY: Breath sounds equal bilaterally. No accessory muscle use. GASTROINTESTINAL: Abdomen soft, non-tender, nondistended. MUSCULOSKELETAL: No cyanosis, or edema. BACK: Nontender without obvious deformity. No CVA tenderness. A/P Assessment and Plan //NSTEMI/CP/SOB Initial troponin 0.02, repeat 0.12 Issue with active chest pain that radiates to her back EKG shows normal sinus rhythm without ST segment elevations or depressions, personally reviewed Heparin drip Aspirin, Plavix, metoprolol, morphine Cardiology consulted, appreciate recommendations = Troponin up to 0.15, however chest pain resolved currently. Continue medications as ordered. Cardiology following. Appreciate assistance. Plan for cardiac catheterization tomorrow. //Primary adrenal insufficiency Patient status post bilateral adrenalectomy Home medications include hydrocortisone and fludrocortisone Given patient is having unstable angina versus [place] will give stress dose steroids ; hydrocortisone 100 mg by mouth every 8 hours = 2/3. Blood pressure acceptable. Decrease hydrocortisone to 50 mg by mouth every 8 hours. Plan to taper tomorrow further. = 2/4. Blood pressure, vitals acceptable. Decrease hydrocortisone to 20 mg by mouth every 8 hours. //CKD Patient status post left nephrectomy, baseline creatinine unknown Creatinine 1.26 Avoid nephrotoxic agents Monitor renal function = Creatinine 1.1 stable stable. //Hypertension/hypothyroidism Continue home medication Discharge Planning Planned cardiac catheter saturday as per cardiology. Expect discharge home after cardiac cath Brent Jackosn MD Dec 29, 2017 10:42
--- NOTE | 2017-12-29 11:20 | PD.CARD.PN ---
Subjective Subjective Remarks Pt still notes back pain improved w/ Tylenol, but no cp Objective Medications Current Medications Medications (Trade) Dose Ordered Sig/Liz Route Start Time Stop Time Status Last Admin (Heparin Inj) 5,000 units UNSCH PRN IV 12/28/17 03:15 (Heparin Inj) 2,500 units UNSCH PRN IV 12/28/17 03:15 Heparin Sodium/ Dextrose 250 ml @ 10 mls/hr TITRATE PRN IV 12/27/17 21:15 12/28/17 20:50 (NS Flush) 2 ml BID IV FLUSH 12/28/17 09:00 12/28/17 07:21 (NS Flush) 2 ml UNSCH PRN IV FLUSH 12/27/17 21:30 (Aspirin) 325 mg DAILY PO 12/27/17 21:30 12/29/17 08:27 (Lopressor) 25 mg BID PO 12/28/17 09:00 12/29/17 08:27 (Nitroglycerin 2% Oint) 1 inch Q6HR TOP 12/28/17 00:00 12/29/17 05:38 (Tylenol) 500 mg Q4H PRN PO 12/27/17 21:30 12/29/17 08:30 (Morphine Inj) 5 mg Q10M PRN IV PUSH 12/27/17 21:30 (Protonix) 40 mg DAILY PO 12/28/17 09:00 12/29/17 08:27 (Zyloprim) 300 mg DAILY PO 12/28/17 09:00 12/29/17 08:27 (Norvasc) 2.5 mg DAILY PO 12/28/17 09:00 12/29/17 08:27 (Synthroid) 88 mcg DAILY@0700 PO 12/28/17 07:00 12/29/17 06:00 (Florinef) 0.1 mg DAILY PO 12/28/17 09:00 12/29/17 08:27 (Benadryl) 50 mg MAINFRAME DEVELOPER PO 12/28/17 13:30 01/01/18 13:29 (Valium) 10 mg MAINFRAME DEVELOPER PO 12/28/17 13:30 01/01/18 13:29 (Versed Inj) 1 mg MAINFRAME DEVELOPER IV PUSH 12/28/17 13:30 01/01/18 13:29 (Cortef) 20 mg Q8HR PO 12/29/17 14:00 Vital Signs / I&O Vital Signs Date Time Temp Pulse Resp B/P (MAP) Pulse Ox O2 Delivery O2 Flow Rate FiO2 12/29/17 08:17 98 21 12/29/17 08:04 97.6 65 20 141/67 (91) 94 12/29/17 08:00 Room Air 12/29/17 07:46 65 12/29/17 04:40 97.4 64 16 137/66 (89) 97 12/29/17 04:00 Room Air 12/29/17 03:48 61 12/29/17 00:18 97.5 68 18 119/68 (85) 96 12/29/17 00:00 62 12/29/17 00:00 Room Air 12/28/17 20:10 63 12/28/17 20:00 Room Air 12/28/17 16:04 97.6 66 20 112/55 (74) 95 12/28/17 12:04 97.8 69 20 125/60 (81) 94 I/O 12/28/17 12/28/17 12/28/17 12/29/17 12/29/17 12/29/17 07:00 15:00 23:00 07:00 15:00 23:00 Intake Total 967.1 ml 1564 ml 1000 ml Output Total 700 ml 1000 ml 700 ml Balance 267.1 ml 564 ml 300 ml Intake Oral 200 ml 420 ml IV Total 767.1 ml 1144 ml 1000 ml Output Urine Total 700 ml 1000 ml 700 ml # Bowel Movements 0 0 Physical Exam GENERAL: This is a well-nourished, well-developed patient, in no apparent distress. CARDIOVASCULAR: Regular rate and rhythm without murmurs, gallops, or rubs. RESPIRATORY: Clear to auscultation. Breath sounds equal bilaterally. No wheezes , rales, or rhonchi. GASTROINTESTINAL: Abdomen soft, non-tender, nondistended. Normal active bowel sounds MUSCULOSKELETAL: Extremities without clubbing, cyanosis, or edema. NEURO: Alert & Oriented x4 to person, place, time, situation. Moves all ext x4 Laboratory Laboratory Tests Test 12/29/17 06:12 White Blood Count 5.7 TH/MM3 Red Blood Count 4.05 MIL/MM3 Hemoglobin 12.6 GM/DL Hematocrit 36.6 % Mean Corpuscular Volume 90.4 FL Mean Corpuscular Hemoglobin 31.1 PG Mean Corpuscular Hemoglobin Concent 34.4 % Red Cell Distribution Width 13.7 % Platelet Count 163 TH/MM3 Mean Platelet Volume 8.5 FL Neutrophils (%) (Auto) 60.8 % Lymphocytes (%) (Auto) 30.1 % Monocytes (%) (Auto) 6.9 % Eosinophils (%) (Auto) 1.9 % Basophils (%) (Auto) 0.3 % Neutrophils # (Auto) 3.5 TH/MM3 Lymphocytes # (Auto) 1.7 TH/MM3 Monocytes # (Auto) 0.4 TH/MM3 Eosinophils # (Auto) 0.1 TH/MM3 Basophils # (Auto) 0.0 TH/MM3 CBC Comment DIFF FINAL Differential Comment Activated Partial Thromboplast Time 83.7 SEC Blood Urea Nitrogen 18 MG/DL Creatinine 1.12 MG/DL Random Glucose 80 MG/DL Calcium Level 9.0 MG/DL Sodium Level 141 MEQ/L Potassium Level 3.8 MEQ/L Chloride Level 108 MEQ/L Carbon Dioxide Level 27.4 MEQ/L Anion Gap 6 MEQ/L Estimat Glomerular Filtration Rate 48 ML/MIN Imaging Last Impressions CT Angiography 12/27/17 0000 Signed Impressions: Service Date/Time: Wednesday, December 27, 2017 17:28 - CONCLUSION: 1. No acute cardiopulmonary disease. 2. Coronary artery atherosclerotic calcifications. Stevie Ralph Jr., MD Assessment and Plan Problem List: (1) Non-STEMI (non-ST elevated myocardial infarction) ICD Codes: I21.4 - Non-ST elevation (NSTEMI) myocardial infarction Status: Acute Plan: Continue medical therapy, Dr. Gomes will plan for cardiac cath tomorrow. (2) Unstable angina ICD Codes: I20.0 - Unstable angina Status: Acute Melo Villasenor MD Dec 29, 2017 11:20
[2017-12-29] MEDS: HEPARIN-D5W 25,000 U/250 ML 250 ML IV PRN (21:15)
[2017-12-30] VITALS (13 sets, daily range): BP systolic 119–143; BP diastolic 59–85; PULSE 55–73; RESP 16–18; TEMP 97.6–98.4; O2SAT 96–99
[2017-12-30] MEDS: HYDROCORTISONE 10 MG TAB PO SCH ×3 (06:21→22:00)
[2017-12-30] MEDS: LEVOTHYROXINE SODIUM 88 MCG TAB PO SCH (06:21)
[2017-12-30] MEDS: NITROGLYCERIN 2% OINT 1 GM PACKET TOP SCH ×3 (06:22→23:26)
[2017-12-30] MEDS: FLUDROCORTISONE ACETATE 0.1 MG TAB PO SCH (08:43)
[2017-12-30] MEDS: METOPROLOL TARTRATE 25 MG TAB PO SCH ×2 (08:43→22:03)
[2017-12-30] MEDS: ASPIRIN 325 MG TAB PO SCH (08:43)
[2017-12-30] MEDS: ALLOPURINOL 300 MG TAB PO SCH (08:43)
[2017-12-30] MEDS: PANTOPRAZOLE SOD 40 MG DELAYED RELEASE TAB PO SCH (08:43)
[2017-12-30] MEDS: amLODIPine BESYLATE 5 MG TAB PO SCH (08:43)
[2017-12-30] MEDS: SODIUM CHLORIDE 0.9% FLUSH 10 ML FLUSH IV FLUSH SCH ×2 (08:46→21:00)
[2017-12-30 10:45] LABS: HEMATOCRIT 35.9 % (35.0-46.0); HEMOGLOBIN 12.1 GM/DL (11.6-15.3); MEAN CELL VOLUME 90.8 FL (80.0-100.0); MEAN CORPUSCULAR HEMOGLOBIN 30.6 PG (27.0-34.0); MEAN CORPUSCULAR HGB CONC 33.7 % (32.0-36.0); MEAN PLATELET VOLUME 8.6 FL (7.0-11.0); PLATELET COUNT 158 TH/MM3 (150-450); RED BLOOD COUNT 3.96 MIL/MM3 (4.00-5.30); WHITE BLOOD COUNT 5.6 TH/MM3 (4.0-11.0)
[2017-12-30 10:56] LABS: INTERNATIONAL NORMALIZED RATIO 1.1 RATIO; PROTHROMBIN TIME - PATIENT 10.8 SEC (9.8-11.6)
[2017-12-30] MEDS: ACETAMINOPHEN 500 MG CPLT PO PRN (11:28)
[2017-12-30] MEDS ORDERED: HEPARIN-NS/PF FLUSH BAG 1,000 ML IV FLUSH ONE (13:09)
[2017-12-30] MEDS ORDERED: MIDAZOLAM HCL 2 MG/2 ML VIAL ONE (13:10)
[2017-12-30] MEDS ORDERED: TIROFIBAN INFUSION INJ 250 ML IV ONE (13:31)
[2017-12-30] MEDS ORDERED: HEPARIN SODIUM - IV 10,000 UNITS/10 ML VIAL ONE (13:35)
[2017-12-30] MEDS ORDERED: NITROGLYCERIN INJ 5 ML ONE (13:52)
[2017-12-30] MEDS ORDERED: TICAGRELOR 90 MG TAB PO ONE (13:58)
[2017-12-30] MEDS ORDERED: NITROGLYCERIN 400 MCG/SPRAY 4.9 GM BOTTLE SL ONE (13:58)
[2017-12-30] MEDS ORDERED: TIROFIBAN INFUSION INJ 250 ML IV SCH (14:10)
[2017-12-30] MEDS ORDERED: SODIUM CHLOR 0.9% 1000 ML INJ 1,000 ML IV SCH (14:10)
--- NOTE | 2017-12-30 14:14 | CATHPROC ---
[employer] HIS Report Study Information Study Number Admission Scheduled Start Study Start [id number] Dec 27 2017 9:35PM 12/30/2017 Dec 30 2017 1:04PM [place] [facility] Cardiac Catheterization Admit Source Facility Department Emergency department [facility] - Developmental Behavioral Physician Physician and Clinical Staff Initial Ajay Green Stator Connector Yen Martines,RN Recorder Angus Lazcano,RT(R) Scrub Ingris StokesRT(R) (BS) Procedures Performed Procedure Location (Site) Vessel Name Coronary Angiograms LCA Left Coronary Coronary Angiograms RCA Right Coronary Drug Eluting Inflatio LAD Mid Left Coronary Drug Eluting Inflatio RCA Prox Right Coronary L Heart Cath LV Gram-hand inj. LV LV Ventricle PTCA LAD Mid Left Coronary PTCA RCA Prox Right Coronary Wire insertion Fem Art (right) Femoral Art Equipment Time Formula Checker Description Size Mfg Part Number Used/Scraped [id number] 13:32 [employer] WIRE, ASAHI PROWATER 180CM 180CM Used *[id number] TRANSDUCER, TRUWAVE [id number] 13:21 SINGH [place]T * Used W/STOCKCOCK *[id number] *[id number] *[id number] [id number] *[id number] [id number] *[id number] [id number] *[id number] 13:21 [employer] IND[employer]RIES PACK, CCL CUSTOM * Used *[id number] 13:21 [employer] PACER PEN, SKIN DUAL W/ RULER * Used *[id number] 13:41 MEDTRONIC BALLOON, 2.5 X 15MM EUPHORA 15MM Used *[id number] 13:42 [employer]TR[employer]IC STENT, 2.5 15MM PATRICIA 2.5 15MM Used *[id number] 13:51 [employer]IC STENT, 2.5 18MM PATRICIA 2.5 18MM Used *[id number] 13:39 [employer] MEDICAL 30 KODY INDEFLATOR Used *[id number] 13:21 [employer] MEDICAL SHEATH, FR6.5 PRELUDE 11CM FR 6.5 038ACT Used *[id number] 13:21 [employer] MEDICAL WIRE, 3MMJ .035 180CM 180CM Used *[id number] 13:21 NAMIC MANIFOLD, 4 PORT * Used *[id number] 13:21 [employer]COMED OMNIPAQUE, 350 MG, 150ML 150ML [id number] Used [id number] 13:21 [employer] MED[employer] BLANKET,WARM AIR CCL * Used *[id number] 14:01 TERUMO MEDICAL SHEATH, FR8 TERUMO (10CM) FR 8 Used *[id number] Equipment Model, Serial, Lot Number and Expiration Data Description Model Number Serial Number Lot Number Expiration Date STENT, 2.5 15MM PATRICIA [id number] 09-19-2019 STENT, 2.5 18MM PATRICIA [id number] 07-22-2019 History: Current Medications Medication Dosage/Unit Route Frequency Last Date/Time Taken ASA NORVASC LOPRESSOR History: Allergies Allergy Reaction No Known Allergies History: Risk Factors Family History of Hypertension Dyslipidemia Previous CO Previous Heart Failure Premature CAD Yes No Yes No No Prior Valve Prior PCI Prior CABG Surgery No No No Cerebrovascular Peripheral Artery Chronic Lung On Dialysis Diabetes Disease Disease Disease No No No No No History: Symptoms/Diagnosis Selection Items Chest pain SOB History: Stress Tests Stress or Imaging Studies Performed No History: Other Disease Selection Items Cancer HTN History: Other Current Smoker No Labs Hgb (g/dl) Hct (%) RBC (MIL/MM3) WBC (l/cumm) Platelets (thousands) 11.60-17.00 35.00-51.00 4.00-5.90 4.00-11.00 150.00-450.00 12.1 35.9 4 3.6 158 Glucose (mg/dl) BUN (mg/dl) Creatinine (mg/dl) BUN:Creatinine (1:x) 74.00-106.00 7.00-18.00 0.50-1.30 10.00-20.00 80 18 1.1 16.4 Na (meq/l) K (meq/l) Cl (meq/l) CO2 (mmol/L) Ca (mg/dl) 136.00-145.00 3.50-5.10 98.00-107.00 21.00-32.00 8.50-10.10 141 3.8 108 27.4 9 PTT (sec) INR (PTT:PT) 24.30-30.10 0.90-1.10 62.5 1.1 Troponin I (ng/ml) Troponin T (ng/ml) CPK (u/l) CPK-MB (ng/ML) 0.02-0.05 0.40-2.10 26.00-308.00 0.50-3.60 0.12 0.15 73 Not Drawn Medication Medication Total Dose (Bolus/Oral) Medication Total Dosage/Unit 1% XYLOCAINE 20 mL AGGRASTAT BOLUS 42 meq/kg BRILINTA 180 mg HEPARIN 2000 units NITROGLYCERIN S/L 0.4 mg NTG (IC) 450 mcg VERSED 2 mg Medications (Bolus/Oral) Medication Time Given Dosage/Unit Administered By Reason VERSED 12/30/2017 1:25:29 PM 2 mg Yen Martines 2 mg VERSED given in lab by Yen Martines RN in Left Antecubital via Peripheral IV. 1% XYLOCAINE 12/30/2017 1:25:37 PM 20 mL Ajay Gomes 20 mL 1% XYLOCAINE given in lab by Ajay Gomes in Right Groin via Subcutaneous. AGGRASTAT BOLUS 12/30/2017 1:34:15 PM 42 meq/kg Yen Martines 42 meq/kg AGGRASTAT BOLUS given in lab by Yen Martines RN in Left Antecubital via Peripheral IV. Amount given = 3498.6 meq. HEPARIN 12/30/2017 1:36:34 PM 2000 units Yen Martines 2000 units HEPARIN given in lab by Yen Martines RN in Left Antecubital via Peripheral IV. NTG (IC) 12/30/2017 1:41:08 PM 100 mcg Ingris Stokes 100 mcg NTG (IC) given in lab by Ingris Stokes RT(R) (BS) via Intra-coronary. NTG (IC) 12/30/2017 1:43:54 PM 100 mcg Ingris Stokes 100 mcg NTG (IC) given in lab by Ingris Stokes RT(R) (BS) via Intra-coronary. NTG (IC) 12/30/2017 1:51:54 PM 100 mcg Ajay Gomes 100 mcg NTG (IC) given in lab by Ajay Gomes via Intra-coronary. NTG (IC) 12/30/2017 1:54:19 PM 150 mcg Ingris Stokes 150 mcg NTG (IC) given in lab by Ingris Stokes, RT(R) (BS) via Intra-coronary. NITROGLYCERIN S/L 12/30/2017 1:58:45 PM 0.4 mg Yen Martines 0.4 mg NITROGLYCERIN S/L given in lab by Yen Martines, ROSENDO via Sublingual. BRILINTA 12/30/2017 2:06:21 PM 180 mg Yen Martines 180 mg BRILINTA given in lab by Yen Martines, ROSENDO via Oral. Medication (Drip) Medication Time Given Dosage/Unit Concentration/Unit Diluent (ml) Solution AGGRASTAT DRIP 12/30/2017 1:40:10 PM 0.075 mcg/kg/min 12.5 mg 250 NaCl .9 0.075 mcg/kg/min AGGRASTAT DRIP given in lab by Yen Martines RN in Left Antecubital via Periphera l IV. Pump/Drip Flow = 7.5 ml/hr using NaCl .9 with a concentration of 12.5 mg in 250 ml. IV Solutions 12/30/2017 1:04:42 PM 0 mL (IV) 500 NaCl .9 IV Solutions given in lab by Yen Martines RN in Left Antecubital via Peripheral IV. Pump/Drip Kamar w = 20 ml/hr using NaCl .9. Initial Case Assessment Cardiovascular HR Rhythm NIBP Chest Pain 62 Sinus 171/72 0 Edema Present Skin color Skin None Normal Warm Dry Circulatory - Right Pulses Dorsalis Pedis Femoral 1 2 Scale (0,1,2,3,4,d) Circulatory - Left Pulses Dorsalis Pedis Femoral 1 2 Scale (0,1,2,3,4,d) Neurological State Oriented to time-place- Alert Moves all extremities person Respiration - General Respiration Rate SpO2 (%) O2 (lpm) (B/min) 20 96 0 Final Case Assessment Cardiovascular HR Rhythm NIBP Chest Pain 61 Sinus 149/73 0 Edema Present Skin color Skin None Normal Warm Dry Circulatory - Right Pulses Dorsalis Pedis Femoral 1 2 Scale (0,1,2,3,4,d) Circulatory - Left Pulses Dorsalis Pedis Femoral 1 2 Scale (0,1,2,3,4,d) Neurological State Oriented to time-place- Alert Moves all extremities person Respiration - General Respiration Rate SpO2 (%) O2 (lpm) (B/min) 14 95 0 Chronological Log Time Study Chronological Log 13:04:23 Patient arrived via Bed. 13:04:24 Patient Name, D.O.B, / Armband Verified By R.N. 13:04:26 Consent signed by the physician and the patient and verified by the Developmental Behavioral Physician staff. 13:04:26 Pre-op and post- op instructions given; patient acknowledges understanding of instructions. 13:04:27 Verbal Stimulation=2 Physical Stimulation=2 Airway=2 Respiration=2 TOTAL=8. (0=absent, 1=li mited, 2=present) 13:04:29 Presedation assessment performed by Developmental Behavioral Physician RN. 13:04:36 Patient has been NPO for More than 6Hrs. 13:04:37 Skin Breakdown- none per patient. 13:04:38 Patient Warmer Placed on the Table. 13:04:39 Kathleen Prominences Protected 13:04:41 A # 20 IV was noted in the Antecubital (left). Grade = 0 IV Solutions given in lab by Yen Martines, RN in Left Antecubital via Peripheral IV. Pump/Dr ip Flow = 20 ml/hr using 13:04:42 NaCl .9. 13:04:45 History and physical on the chart or being dictated. Assessment: Initial Case, HR=62 BPM, Rhythm=Sinus, OUEO=370/72 mmhg, Chest Pain=0, Edema=None, Color=Normal, Skin = Warm, Dry Right Pulses: El Ped=1, Femoral=2 13:04:47 Left Pulses: El Ped=1, Femoral=2 Neurological: State=Alert, Ox3, ABBOTT Respiration: Resp=20 B/min, SpO2=96 %, O2=0 lpm Vitals capture started with the following parameters, Patient=Adult, Interval=5 min, Initial Pr pnwakh=487 mmHg, 13:10:12 Deflation Rate=5 mmHg, Cuff placed on Right Ankle 13:10:53 Reference ECG taken 13:11:24 HR=67 bpm, QRGE=294/72 mmhg, SpO2=95.0 %, Resp=18 B/min, Pain=0, Huan=10, Ballard=2 13:15:11 Bilateral groins prepped with 2% chlorhexidine, and draped after a 3 minute waiting time. 13:16:27 HR=58 bpm, PWCX=345/76 mmhg, SpO2=96.0 %, Resp=16 B/min, Pain=0, Huan=10, Ballard=2 13:19:00 Bilateral groins prepped with 2% chlorhexidine, and draped after a 3 minute waiting time. 13:19:06 MD paged 13:20:59 HR=62 bpm, BFZK=040/76 mmhg, SpO2=95.0 %, Resp=18 B/min, Pain=0, Huan=10, Ballard=2 13:21:17 Pressure channel 1 zeroed. 13:22:31 MD arrived. Time Out. Correct patient, correct procedure, correct physician, power injector not loaded with contrast with surgical 13:24:57 team present. Time Out Concurred by MD and individual staff in procedure. 13:25:10 Case Start 13:25:29 2 mg VERSED given in lab by Yen Martines RN in Left Antecubital via Peripheral IV. 13:25:37 20 mL 1% XYLOCAINE given in lab by Ajay Gomes in Right Groin via Subcutaneous. 13:25:56 HR=64 bpm, CKRC=572/75 mmhg, SpO2=96.0 %, Resp=17 B/min, Pain=0, Huan=10, Ballard=2 13:26:44 Access site was Right Femoral Artery. 13:26:50 A SHEATH, FR6.5 PRELUDE 11CM FR 6.5 was advanced into the Fem Art (right) using the Percuta neous technique. A JL 4.0 INFINITI CATHETER FR 5 was advanced over a wire. OMNIPAQUE, 350 MG, 150ML 150ML was us ed for 13:27:32 injections. 13:28:14 The LCA was injected and visualized at various angles. OMNIPAQUE, 350 MG, 150ML 150ML used . Recorded Pressure: Ao, HR=61, Condition=Condition 1 13:28:27 (Aorta) Ao 126/51/79 13:29:17 Catheter was removed A 3DRC INFINITI CATHETER FR 6 was advanced over a wire. OMNIPAQUE, 350 MG, 150ML 150ML was used for 13:29:38 injections. 13:30:24 The RCA was injected and visualized at various angles. OMNIPAQUE, 350 MG, 150ML 150ML used . 13:30:34 Catheter was removed 13:30:53 HR=65 bpm, UHTB=712/60 mmhg, SpO2=92.0 %, Resp=24 B/min, Pain=0, Huan=10, Ballard=2 13:31:39 Activated Clotting Time Drawn A XB 3.5 GUIDE CATHETER FR 6 was advanced over a wire. OMNIPAQUE, 350 MG, 150ML 150ML was used for 13:33:42 injections. 42 meq/kg AGGRASTAT BOLUS given in lab by Yen aMrtines, RN in Left Antecubital via Periphera l IV. Amount given 13:34:15 = 3498.6 meq. 13:34:53 A WIRE, ASAHI PROWATER 180CM 180CM was inserted via Fem Art (right). 13:35:32 ACT (Normal Range 90-180) = 200 13:35:54 HR=64 bpm, BSUY=155/63 mmhg, SpO2=93.0 %, Resp=13 B/min, Pain=0, Huan=10, Ballard=2 13:36:34 2000 units HEPARIN given in lab by Yen Martines, ROSENDO in Left Antecubital via Peripheral I V. 13:37:43 Interventional wire has crossed the lesion 13:38:35 A BALLOON, 2.5 X 15MM EUPHORA 15MM was inserted over WIRE, ASAHI PROWATER 180CM 180CM via t he LAD Mid. A BALLOON, 2.5 X 15MM EUPHORA 15MM over a WIRE, ASAHI PROWATER 180CM 180CM in the LAD Mid was i nflated 13:39:21 using a 30 KODY INDEFLATOR at 10 kody for 35 sec. 0.075 mcg/kg/min AGGRASTAT DRIP given in lab by Yen Martines, ROSENDO in Left Antecubital via Per ipheral IV. 13:40:10 Pump/Drip Flow = 7.5 ml/hr using NaCl .9 with a concentration of 12.5 mg in 250 ml. 13:40:53 HR=65 bpm, JZGE=027/64 mmhg, SpO2=94.0 %, Resp=20 B/min, Pain=0, Huan=10, Ballard=2 13:41:08 100 mcg NTG (IC) given in lab by Ingris Stokes, RT(R) (BS) via Intra-coronary. 13:41:34 Balloon Removed. A STENT, 2.5 15MM PATRICIA 2.5 15MM was advanced through a XB 3.5 GUIDE CATHETER FR 6 over a WIRE, ASAHI 13:41:43 PROWATER 180CM 180CM. A STENT, 2.5 15MM PATRICIA 2.5 15MM was deployed using a 30 KODY INDEFLATOR at 13 atmospheres for 30 seconds in 13:42:32 the LAD Mid. 13:43:50 Delivery device removed 13:43:54 100 mcg NTG (IC) given in lab by Ingris Stokes, RT(R) (BS) via Intra-coronary. 13:44:30 The LCA was injected and visualized at various angles. OMNIPAQUE, 350 MG, 150ML 150ML used . 13:44:47 Wire removed 13:45:02 Activated Clotting Time Drawn 13:45:14 Catheter was removed A 3DRC GUIDE CATHETER FR 6 was advanced over a wire. OMNIPAQUE, 350 MG, 150ML 150ML was used fo r 13:45:29 injections. 13:45:56 HR=67 bpm, HMVT=437/62 mmhg, SpO2=90.0 %, Resp=17 B/min, Pain=0, Huan=10, Ballard=2 13:46:49 A WIRE, ASAHI PROWATER 180CM 180CM was inserted via Fem Art (right). 13:47:34 Interventional wire has crossed the lesion 13:48:44 ACT (Normal Range 90-180) = 255 13:49:03 A BALLOON, 2.5 X 15MM EUPHORA 15MM was inserted over WIRE, ASAHI PROWATER 180CM 180CM via t he RCA Prox. A BALLOON, 2.5 X 15MM EUPHORA 15MM over a WIRE, ASAHI PROWATER 180CM 180CM in the RCA Prox was inflated 13:49:45 using a 30 KODY INDEFLATOR at 8 kody for 30 sec. 13:49:56 ACT (Normal Range 90-180) = 255 A BALLOON, 2.5 X 15MM EUPHORA 15MM over a WIRE, ASAHI PROWATER 180CM 180CM in the RCA Prox was inflated 13:50:34 using a 30 KODY INDEFLATOR at 8 kody for 30 sec. 13:51:38 HR=67 bpm, TGDU=375/71 mmhg, SpO2=94.0 %, Resp=17 B/min, Pain=0, Huan=10, Ballard=2 13:51:46 Balloon Removed. 13:51:54 100 mcg NTG (IC) given in lab by Ajay Gomes via Intra-coronary. A STENT, 2.5 18MM PATRICIA 2.5 18MM was advanced through a 3DRC GUIDE CATHETER FR 6 over a WIRE, AHI 13:52:17 PROWATER 180CM 180CM. A STENT, 2.5 18MM PATRICIA 2.5 18MM was deployed using a 30 KODY INDEFLATOR at 15 atmospheres for 30 seconds in 13:52:53 the RCA Prox. 13:54:07 Delivery device removed 13:54:19 150 mcg NTG (IC) given in lab by Ingris Stokes RT(Kika) (BS) via Intra-coronary. 13:54:52 The RCA was injected and visualized at various angles. OMNIPAQUE, 350 MG, 150ML 150ML used . 13:55:20 Wire removed 13:55:24 Catheter was removed A MPA-2 INFINITI CATHETER FR 6 was advanced over a wire. OMNIPAQUE, 350 MG, 150ML 150ML was use d for 13:55:35 injections. 13:56:00 HR=85 bpm, JUVX=101/66 mmhg, SpO2=94.0 %, Resp=17 B/min, Pain=0, Huan=10, Ballard=2 13:56:41 The LV was manually injected with 8 cc's and visualized. OMNIPAQUE, 350 MG, 150ML 150ML use d. Recorded Pressure: LV, Ao, HR=71, Condition=Condition 1 13:56:51 (Left Ventricle) LV 146/13/25, (Aorta) Ao 151/62/99 13:57:06 Catheter was removed 13:57:10 Case End 13:58:45 0.4 mg NITROGLYCERIN S/L given in lab by Yen Martines, RN via Sublingual. 13:59:27 No case complications noted. 13:59:29 Cine recording checked. 14:00:55 HR=67 bpm, PCMQ=200/73 mmhg, SpO2=96.0 %, Resp=5 B/min, Pain=0, Huan=10, Ballard=2 A SHEATH, FR8 TERUMO (10CM) FR 8 was exchanged in the Fem Art (right). This was necessary in o rder to minimize 14:01:14 site leakage. Assessment: Final Case, HR=61 BPM, Rhythm=Sinus, DDRD=278/73 mmhg, Chest Pain=0, Edema=None, Color=Normal, Skin = Warm, Dry Right Pulses: El Ped=1, Femoral=2 14:01:45 Left Pulses: El Ped=1, Femoral=2 Neurological: State=Alert, Ox3, ABBOTT Respiration: Resp=14 B/min, SpO2=95 %, O2=0 lpm 14:03:10 In the Fem Art (right) the SHEATH, FR8 TERUMO (10CM) FR [address] by Ingris Stokes RT(Kika) (BS). 14:04:02 Bedside Report will be given. 14:04:06 A Left Heart Cath was performed. 14:05:59 HR=68 bpm, UXMT=306/71 mmhg, SpO2=95.0 %, Resp=13 B/min, Pain=0, Huan=10, Ballard=2 14:06:21 180 mg BRILINTA given in lab by Yen Martines, RN via Oral. 14:13:08 Patient moved to [facility] End Study - Contrast Media Used In Study Contrast Total Opened (mL) Total Used (mL) Total Wasted (mL) Omnipaque 150 145 5 End Study - Maximum Contrast Load Max Contrast Load (mL) 378.7 End Study - Radiation Exposure Fluoro Time (minutes) 8.2 End Study - Patient Disposition Complications Transferred To Interventional Outcome No Telemetry Bed successful
[2017-12-30] MEDS ORDERED: TEMAZEPAM 15 MG CAP PO PRN (14:15)
[2017-12-30] MEDS ORDERED: MISC INFORMATION XX ONE (14:15)
[2017-12-30] MEDS ORDERED: IOHEXOL 350 MG/ML 50 ML BTL (for Cath Lab) OTHER ONE (14:37)
[2017-12-30] MEDS ORDERED: IOHEXOL 350 MG/ML 100 ML BTL (for Cath Lab) OTHER ONE (14:37)
[2017-12-30] MEDS ORDERED: LABETALOL HCL 100 MG/20 ML VIAL ONE (16:24)
[2017-12-30] MEDS ORDERED: LABETALOL HCL 100 MG/20 ML VIAL IV PUSH PRN (16:45)
--- NOTE | 2017-12-30 20:24 | HHI.PR ---
Subjective Remarks sp cardiac cath denies cp/sob. Objective Vitals Vital Signs Date Time Temp Pulse Resp B/P (MAP) Pulse Ox O2 Delivery O2 Flow Rate FiO2 12/30/17 14:17 95 Room Air 12/30/17 12:13 97.6 55 18 141/77 (98) 96 12/30/17 12:00 55 12/30/17 08:04 97.8 58 17 143/85 (104) 96 12/30/17 08:00 59 12/30/17 07:00 Room Air 12/30/17 04:55 98.3 62 17 119/59 (79) 99 12/30/17 04:00 Room Air 12/30/17 03:42 56 12/30/17 00:55 98.0 62 17 123/66 (85) 96 12/30/17 00:00 Room Air 12/29/17 23:56 57 I/O 12/29/17 12/29/17 12/29/17 12/30/17 12/30/17 12/30/17 07:00 15:00 23:00 07:00 15:00 23:00 Intake Total 1000 ml 520 ml 80 ml Output Total 700 ml Balance 300 ml 520 ml 80 ml Intake Oral 520 ml IV Total 1000 ml 80 ml Output Urine Total 700 ml # Voids 4 3 # Bowel Movements 1 Result Diagram: 12/30/17 0959 12/29/17 [address] Angiography 12/27/17 0000 Signed Impressions: Service Date/Time: Wednesday, December 27, 2017 17:28 - CONCLUSION: 1. No acute cardiopulmonary disease. 2. Coronary artery atherosclerotic calcifications. Stevie Ralph Jr., MD Objective Remarks GENERAL: sitting up in bed. Appears comfortable. no change on exam SKIN: Warm and dry. HEAD: Normocephalic. EYES: No scleral icterus. No injection or drainage. NECK: Supple, trachea midline. No JVD CARDIOVASCULAR: Regular rate and rhythm without murmurs, gallops, or rubs. RESPIRATORY: Breath sounds equal bilaterally. No accessory muscle use. GASTROINTESTINAL: Abdomen soft, non-tender, nondistended. MUSCULOSKELETAL: No cyanosis, or edema. BACK: Nontender without obvious deformity. No CVA tenderness. Medications and IVs Current Medications Medications (Trade) Dose Ordered Sig/Liz Route Start Time Stop Time Status Last Admin (NS Flush) 2 ml BID IV FLUSH 12/28/17 09:00 12/28/17 07:21 (NS Flush) 2 ml UNSCH PRN IV FLUSH 12/27/17 21:30 (Aspirin) 325 mg DAILY PO 12/27/17 21:30 12/30/17 08:43 (Lopressor) 25 mg BID PO 12/28/17 09:00 12/30/17 08:43 (Nitroglycerin 2% Oint) 1 inch Q6HR TOP 12/28/17 00:00 12/30/17 11:28 (Tylenol) 500 mg Q4H PRN PO 12/27/17 21:30 12/30/17 11:28 (Morphine Inj) 5 mg Q10M PRN IV PUSH 12/27/17 21:30 (Protonix) 40 mg DAILY PO 12/28/17 09:00 12/30/17 08:43 (Zyloprim) 300 mg DAILY PO 12/28/17 09:00 12/30/17 08:43 (Norvasc) 2.5 mg DAILY PO 12/28/17 09:00 12/30/17 08:43 (Synthroid) 88 mcg DAILY@0700 PO 12/28/17 07:00 12/30/17 06:21 (Florinef) 0.1 mg DAILY PO 12/28/17 09:00 12/30/17 08:43 (Benadryl) 50 mg PATIENT REGISTRAR PO 12/28/17 13:30 01/01/18 13:29 (Valium) 10 mg PATIENT REGISTRAR PO 12/28/17 13:30 01/01/18 13:29 (Versed Inj) 1 mg PATIENT REGISTRAR IV PUSH 12/28/17 13:30 01/01/18 13:29 (Cortef) 20 mg Q8HR PO 12/29/17 14:00 12/30/17 13:00 Sodium Chloride 1,000 ml @ 100 mls/hr Q10H IV 12/30/17 14:10 12/31/17 02:09 (Restoril) 15 mg HS PRN PO 12/30/17 14:15 (Aspirin Chew) 81 mg DAILY PO 12/31/17 09:00 (Brilinta) 90 mg BID PO 12/30/17 21:00 Tirofiban/Sodium Chloride 250 ml @ 14.994 mls/ hr [id number] IV 12/30/17 14:10 12/31/17 08:09 12/30/17 13:39 (Trandate Inj) 20 mg UNSCH X1 PRN IV PUSH 12/30/17 16:45 12/30/17 23:59 A/P Assessment and Plan 1. NSTEMI/CP/SOB Initial troponin 0.02, repeat 0.12 Issue with active chest pain that radiates to her back EKG shows normal sinus rhythm without ST segment elevations or depressions, personally reviewed Heparin drip Aspirin, Plavix, metoprolol, morphine Cardiology consulted, appreciate recommendations = Troponin up to 0.15, however chest pain resolved currently. Continue medications as ordered. Cardiology following. Appreciate assistance. Plan for cardiac catheterization tomorrow. 12/30 sp cardiac catheterization with 2 stents placed. 2. Primary adrenal insufficiency Patient status post bilateral adrenalectomy Home medications include hydrocortisone and fludrocortisone Given patient is having unstable angina versus NE will give stress dose steroids ; hydrocortisone 100 mg by mouth every 8 hours = 2/3. Blood pressure acceptable. Decrease hydrocortisone to 50 mg by mouth every 8 hours. Plan to taper tomorrow further. = 2/4. Blood pressure, vitals acceptable. Decrease hydrocortisone to 20 mg by mouth every 8 hours. 2 BP stable. Continue hydrocortisone. 3. CKD Patient status post left nephrectomy, baseline creatinine unknown Creatinine 1.26 Avoid nephrotoxic agents Monitor renal function = Creatinine 1.1 stable stable. //Hypertension/hypothyroidism Continue home medication Discharge Planning possible DC in am, pending cardiology clearance. Brendan Bryan MD Dec 30, 2017 20:24
[2017-12-30] MEDS: TICAGRELOR 90 MG TAB PO SCH (22:04)
--- NOTE | 2017-12-30 22:06 | MA ---
cc: JULIO KEANE MD, GLENN H. M.D. DATE 12/30/2017 PROCEDURE Left heart catheterization, selective coronary angiography, left ventriculography, angioplasty and stent of the mid-LAD, angioplasty and stent of the proximal right coronary. PROCEDURE NOTE The patient was brought to the cardiac catheterization laboratory in a fasting state after having signed informed consent. The right groin was prepped and draped as per policy and anesthetized with 1% lidocaine. Arterial access was obtained via the right femoral artery and a 6-Qatari sheath placed. Coronary arteriography was performed using 6-Qatari Ronnie left 4.0 and right progressive catheters. Left ventriculography was done using a standard 6-Qatari pigtail. Percutaneous coronary interventions were done as described below. There were no apparent immediate complications. HEMODYNAMIC RESULTS Left ventricle 146 with an end-diastolic pressure of 15. Aorta 151/62 with a mean of 99. There was no significant transvalvular aortic gradient on pullback of the pigtail catheter. CORONARY ARTERIOGRAPHY The left main is a fairly large vessel with no disease. The left anterior descending has approximately 10% proximal stenosis and then a 95% lesion in its midportion just after the takeoff of a medium-sized diagonal which has diffuse up to 30% proximal disease. There are minimal luminal irregularities in the distal LAD. The left circumflex is fairly diffusely diseased. There is up to 25% stenosis proximally and in its midportion. The left circumflex gives rise to a small to medium sized obtuse marginal which has diffuse ostial to proximal disease resulting in up to 30% stenosis. The right coronary artery is a medium-sized dominant vessel with probably up to 70% proximal stenosis and 70% distal stenosis where the vessel is small. LEFT VENTRICULOGRAPHY Contrast injection of the left ventricle reveals no segmental wall motion abnormalities. Ejection fraction is estimated at 60%. PRECAUTIONS CORONARY INTERVENTION Aggrastat was given as per protocol. Adequate heparin was given during the procedure to achieve an ACT of 255 seconds. Using a 6-Qatari XB 3.5 guiding catheter the ostium of the left main was re-engaged. Using a 0.014 [place] guidewire the mid-LAD lesion was crossed without difficulty and the tip of the wire positioned distally. Predilation was done using a 2.5-mm Euphora balloon catheter. Stenting was done using a 2.5 x 15-mm Resolute roselia stent which was deployed at 13 atmospheres for 30 seconds. Final angiography shows reduction of the initial stenosis to 0% residual with no evidence for dissection or distal embolization. There is residual diffuse disease of the mid LAD, distal to the stent, which probably approaches 30% severity. The guiding catheter was exchanged for a progressive right guide. The same [email or web address] wire was used to cross the proximal right coronary disease and the tip of the wire positioned distally. It was decided to treat the distal disease medically as the vessel is probably less than 2 mm in diameter in this region. The proximal disease was predilated using the same 2.5-mm Euphora balloon catheter. Stenting was done using a 2.5 x 18-mm Resolute roselia stent which was deployed at 16 atmospheres for 30 seconds. Final angiography shows reduction of the initial stenosis to roughly 0% residual with no definite evidence for dissection or distal embolization. There were no apparent immediate complications. CONCLUSIONS 1. Moderate to severe three-vessel coronary artery disease. 2. Right dominant system. 3. Normal left ventricular function with estimated ejection fraction of 60%. 4. Status post angioplasty and stent of the mid-LAD and angioplasty and stent of the proximal right coronary. DISCUSSION The residual borderline disease in the distal right coronary will be treated medically. The vessel is fairly small in diameter in this region. If however, the patient has refractory angina in the future could consider percutaneous intervention on this disease. MD RITESH Carmichael/RICHARD /2:04 PM /9:48 PM VALE
--- NOTE | 2017-12-30 23:12 | EKG ---
Date Performed: 12/27/2017 Time Performed: 23:12:32 PTAGE: 72 years EKG: Sinus rhythm Normal ECG NO PREVIOUS TRACING DOCTOR: Kori Hou Interpretating Date/Time 12/30/2017 23:09:58
[2017-12-31] VITALS (11 sets, daily range): BP systolic 117–155; BP diastolic 58–65; PULSE 52–67; RESP 17; TEMP 98.3–98.5; O2SAT 97
[2017-12-31 04:22] LABS: BASOPHIL % 0.2 % (0.0-2.0); EOSINOPHIL # 0.1 TH/MM3 (0-0.4); EOSINOPHIL % 1.2 % (0.0-4.0); HEMOGLOBIN 12.3 GM/DL (11.6-15.3); LYMPH % 12.1 % (9.0-44.0); LYMPHOCYTE # 0.9 TH/MM3 (1.0-4.8); MEAN CELL VOLUME 90.3 FL (80.0-100.0); MEAN CORPUSCULAR HGB CONC 34.3 % (32.0-36.0); MEAN PLATELET VOLUME 8.1 FL (7.0-11.0); MONO % 6.7 % (0.0-8.0); MONOCYTE # 0.5 TH/MM3 (0-0.9); NEUT % 79.8 % (16.0-70.0); PLATELET COUNT 157 TH/MM3 (150-450); RED BLOOD COUNT 3.99 MIL/MM3 (4.00-5.30); RED CELL DISTRIBUTION WIDTH 14.4 % (11.6-17.2); WHITE BLOOD COUNT 7.6 TH/MM3 (4.0-11.0)
[2017-12-31 04:46] LABS: BICARBONATE 27.2 MEQ/L (21.0-32.0); CALCIUM 9.1 MG/DL (8.5-10.1); CREATININE 1.05 MG/DL (0.50-1.00)
[2017-12-31] MEDS ORDERED: POTASSIUM CHLORIDE 10 MEQ CONTROLLED RELEASE TAB PO ONE (05:30)
[2017-12-31] MEDS: NITROGLYCERIN 2% OINT 1 GM PACKET TOP SCH (05:33)
[2017-12-31] MEDS: HYDROCORTISONE 10 MG TAB PO SCH (06:06)
[2017-12-31] MEDS: LEVOTHYROXINE SODIUM 88 MCG TAB PO SCH (06:28)
--- NOTE | 2017-12-31 08:24 | PD.CARD.PN ---
Subjective Subjective Remarks Interventional cardiology f/u. Feels "great". Denies angina, dyspnea, dizziness, groin pain. Objective Medications Item Value Date Time Aspirin 81 mg 12/31/17 0900 (Aspirin Chew) DAILY/PO Ticagrelor 90 mg 12/30/17 2100 (Brilinta) BID/PO 12/30/172203 Metoprolol 25 mg 12/28/17 0900 Tartrate BID/PO 12/30/17 2203 (Lopressor) Amlodipine 2.5 mg 12/28/17 0900 Besylate DAILY/PO 12/30/17 0843 (Norvasc) Current Medications Medications (Trade) Dose Ordered Sig/Liz Route Start Time Stop Time Status Last Admin (NS Flush) 2 ml BID IV FLUSH 12/28/17 09:00 12/28/17 07:21 (NS Flush) 2 ml UNSCH PRN IV FLUSH 12/27/17 21:30 (Aspirin) 325 mg DAILY PO 12/27/17 21:30 12/30/17 08:43 (Lopressor) 25 mg BID PO 12/28/17 09:00 12/30/17 22:03 (Nitroglycerin 2% Oint) 1 inch Q6HR TOP 12/28/17 00:00 12/30/17 11:28 (Tylenol) 500 mg Q4H PRN PO 12/27/17 21:30 12/30/17 11:28 (Morphine Inj) 5 mg Q10M PRN IV PUSH 12/27/17 21:30 (Protonix) 40 mg DAILY PO 12/28/17 09:00 12/30/17 08:43 (Zyloprim) 300 mg DAILY PO 12/28/17 09:00 12/30/17 08:43 (Norvasc) 2.5 mg DAILY PO 12/28/17 09:00 12/30/17 08:43 (Synthroid) 88 mcg DAILY@0700 PO 12/28/17 07:00 12/31/17 06:28 (Florinef) 0.1 mg DAILY PO 12/28/17 09:00 12/30/17 08:43 (Benadryl) 50 mg CASING TIER PO 12/28/17 13:30 01/01/18 13:29 (Valium) 10 mg CASING TIER PO 12/28/17 13:30 01/01/18 13:29 (Versed Inj) 1 mg CASING TIER IV PUSH 12/28/17 13:30 01/01/18 13:29 (Cortef) 20 mg Q8HR PO 12/29/17 14:00 12/31/17 06:06 (Restoril) 15 mg HS PRN PO 12/30/17 14:15 (Aspirin Chew) 81 mg DAILY PO 12/31/17 09:00 (Brilinta) 90 mg BID PO 12/30/17 21:00 12/30/17 22:04 Vital Signs / I&O Vital Signs Date Time Temp Pulse Resp B/P (MAP) Pulse Ox O2 Delivery O2 Flow Rate FiO2 12/31/17 07:00 63 12/31/17 06:25 62 12/31/17 05:17 62 12/31/17 04:12 62 12/31/17 03:36 52 12/31/17 03:36 98.3 67 17 155/65 (95) 97 12/31/17 02:27 56 12/31/17 01:32 57 12/31/17 00:00 64 12/30/17 23:36 98.3 72 16 127/68 (87) 98 12/30/17 23:35 60 12/30/17 22:15 55 12/30/17 21:00 73 12/30/17 20:00 61 12/30/17 19:20 63 12/30/17 19:20 98.4 61 17 139/67 (91) 97 12/30/17 19:20 97 Room Air 12/30/17 14:17 95 Room Air 12/30/17 12:13 97.6 55 18 141/77 (98) 96 12/30/17 12:00 55 I/O 12/30/17 12/30/17 12/30/17 12/31/17 12/31/17 12/31/17 07:00 15:00 23:00 07:00 15:00 23:00 Intake Total 80 ml 480 ml Output Total 500 ml Balance 80 ml -20 ml Intake Oral 480 ml IV Total 80 ml Output Urine Total 500 ml # Voids 3 Physical Exam GENERAL: Well developed, well nourished. No acute distress. HEENT: Jugular venous pressure is normal. CHEST: Lungs clear to auscultation bilaterally. Unlabored respiratory effort. CARDIAC: Regular rate and rhythm without S3, S4, or murmur. ABDOMEN: Soft, nontender, no hepatosplenomegaly. Bowel sounds present. EXTREMITIES: No clubbing, cyanosis, or edema. Right groin nontender, no hematoma. Laboratory Laboratory Tests Test 12/30/17 09:59 12/31/17 04:00 White Blood Count 5.6 TH/MM3 7.6 TH/MM3 Red Blood Count 3.96 MIL/MM3 3.99 MIL/MM3 Hemoglobin 12.1 GM/DL 12.3 GM/DL Hematocrit 35.9 % 36.0 % Mean Corpuscular Volume 90.8 FL 90.3 FL Mean Corpuscular Hemoglobin 30.6 PG 31.0 PG Mean Corpuscular Hemoglobin Concent 33.7 % 34.3 % Red Cell Distribution Width 14.0 % 14.4 % Platelet Count 158 TH/MM3 157 TH/MM3 Mean Platelet Volume 8.6 FL 8.1 FL Prothrombin Time 10.8 SEC Prothromb Time International Ratio 1.1 RATIO Activated Partial Thromboplast Time 69.9 SEC Neutrophils (%) (Auto) 79.8 % Lymphocytes (%) (Auto) 12.1 % Monocytes (%) (Auto) 6.7 % Eosinophils (%) (Auto) 1.2 % Basophils (%) (Auto) 0.2 % Neutrophils # (Auto) 6.0 TH/MM3 Lymphocytes # (Auto) 0.9 TH/MM3 Monocytes # (Auto) 0.5 TH/MM3 Eosinophils # (Auto) 0.1 TH/MM3 Basophils # (Auto) 0.0 TH/MM3 CBC Comment DIFF FINAL Differential Comment Blood Urea Nitrogen 16 MG/DL Creatinine 1.05 MG/DL Random Glucose 101 MG/DL Calcium Level 9.1 MG/DL Sodium Level 142 MEQ/L Potassium Level 3.1 MEQ/L Chloride Level 107 MEQ/L Carbon Dioxide Level 27.2 MEQ/L Anion Gap 8 MEQ/L Estimat Glomerular Filtration Rate 52 ML/MIN Total Creatine Kinase 40 U/L Assessment and Plan Problem List: (1) Non-STEMI (non-ST elevated myocardial infarction) ICD Codes: I21.4 - Non-ST elevation (NSTEMI) myocardial infarction Status: Acute Plan: Stable overnight. No further angina. Groin stable. Renal indices stable. OK to discharge home today from my standpoint on metoprolol, aspirin, Brilinta. (2) Hypertension ICD Codes: I10 - Essential (primary) hypertension Status: Chronic Plan: Elevated BP's yesterday, better today. Rec increase amlodipine to 5 mg qd. Outpatient management. Code Status full code Discussed Condition With patient Problem Qualifiers (1) Hypertension: Qualified Codes: I10 - Essential (primary) hypertension Ajay Gomes MD Dec 31, 2017 08:24
[2017-12-31] MEDS ORDERED: ASPIRIN 81 MG CHEW TAB PO SCH (09:00)
[2017-12-31] MEDS ORDERED: amLODIPine BESYLATE 5 MG TAB PO SCH (09:00)
[2017-12-31] MEDS: METOPROLOL TARTRATE 25 MG TAB PO SCH (09:04)
[2017-12-31] MEDS: PANTOPRAZOLE SOD 40 MG DELAYED RELEASE TAB PO SCH (09:04)
[2017-12-31] MEDS: ALLOPURINOL 300 MG TAB PO SCH (09:05)
[2017-12-31] MEDS: TICAGRELOR 90 MG TAB PO SCH (09:06)
[2017-12-31] MEDS: FLUDROCORTISONE ACETATE 0.1 MG TAB PO SCH (09:06)
[2017-12-31] MEDS: SODIUM CHLORIDE 0.9% FLUSH 10 ML FLUSH IV FLUSH SCH (09:07)
[2017-12-31] MEDS ORDERED: BRIL90TA PO (09:24)
[2017-12-31] MEDS ORDERED: AMLO5 PO (09:24)
[2017-12-31] MEDS ORDERED: METO25TA3 PO (09:24)
[2017-12-31] MEDS ORDERED: ASPI81 PO (09:24)
--- NOTE | 2017-12-31 09:27 | HHI.DCPOC ---
Discharge Care Plan Diagnosis: (1) Non-STEMI (non-ST elevated myocardial infarction) (2) Hypertension (3) Adrenal insufficiency (4) ERICA (acute kidney injury) Goals to Promote Your Health * To prevent worsening of your condition and complications * To maintain your health at the optimal level Directions to Meet Your Goals Take your medications as prescribed Follow your dietary instruction Follow activity as directed Keep your appointments as scheduled Take your immunizations and boosters as scheduled If your symptoms worsen call your PCP, if no PCP go to Urgent Care Center or Emergency Room Smoking is Dangerous to Your Health. Avoid second hand smoke Call the 24-hour hour crisis hotline for domestic abuse at Brendan Bryan MD Dec 31, 2017 09:27
--- NOTE | 2017-12-31 10:13 | HHI.DS ---
Discharge Summary Admission Date Dec 27, 2017 at 21:35 Discharge Date: Dec 31, 2017 Admitting Diagnosis unstable angina, coronary artery calcifications (1) Unstable angina ICD Code: I20.0 - Unstable angina Status: Resolved (2) Adrenal insufficiency ICD Code: E27.40 - Unspecified adrenocortical insufficiency Status: Chronic (3) Hypertension ICD Code: I10 - Essential (primary) hypertension Status: Chronic (4) Non-STEMI (non-ST elevated myocardial infarction) ICD Code: I21.4 - Non-ST elevation (NSTEMI) myocardial infarction Status: Resolved (5) ERICA (acute kidney injury) ICD Code: N17.9 - Acute kidney failure, unspecified Status: Resolved Brief History - From Admission 72-year-old female with a past medical history significant for primary adrenal insufficiency secondary to bilateral adrenalectomy, hypertension, hypothyroidism and gout presents to the emergency department for evaluation of chest pain. The patient endorses substernal chest pain/pressure that radiates to between her shoulder blades for the past 1.5 weeks. She states it is normally intermittent but today it became progressively much worse. She endorses accompanying shortness of breath. Denies diaphoresis. Denies fever/ chills or systemic symptoms. CBC/BMP: 12/31/17 0400 12/31/17 0400 Significant Findings Laboratory Tests Test 12/28/17 10:32 12/29/17 06:12 12/29/17 18:05 12/30/17 01:26 Activated Partial Thromboplast Time 61.5 SEC (24.3-30.1) 83.7 SEC (24.3-30.1) 42.2 SEC (24.3-30.1) 62.5 SEC (24.3-30.1) Creatinine 1.12 MG/DL (0.50-1.00) Chloride Level 108 MEQ/L (98-107) Estimat Glomerular Filtration Rate 48 ML/MIN (>89) Test 12/30/17 09:59 12/31/17 04:00 Red Blood Count 3.96 MIL/MM3 (4.00-5.30) 3.99 MIL/MM3 (4.00-5.30) Activated Partial Thromboplast Time 69.9 SEC (24.3-30.1) Neutrophils (%) (Auto) 79.8 % (16.0-70.0) Lymphocytes # (Auto) 0.9 TH/MM3 (1.0-4.8) Creatinine 1.05 MG/DL (0.50-1.00) Potassium Level 3.1 MEQ/L (3.5-5.1) Estimat Glomerular Filtration Rate 52 ML/MIN (>89) Imaging Last Impressions CT Angiography 12/27/17 0000 Signed Impressions: Service Date/Time: Wednesday, December 27, 2017 17:28 - CONCLUSION: 1. No acute cardiopulmonary disease. 2. Coronary artery atherosclerotic calcifications. Stevie Ralph Jr., MD PE at Discharge GENERAL: sitting up in bed. Appears comfortable. no change on exam SKIN: Warm and dry. HEAD: Normocephalic. EYES: No scleral icterus. No injection or drainage. NECK: Supple, trachea midline. No JVD CARDIOVASCULAR: Regular rate and rhythm without murmurs, gallops, or rubs. RESPIRATORY: Breath sounds equal bilaterally. No accessory muscle use. GASTROINTESTINAL: Abdomen soft, non-tender, nondistended. MUSCULOSKELETAL: No cyanosis, or edema. BACK: Nontender without obvious deformity. No CVA tenderness. Pt update on day of discharge Denies cp/sob. Wants to go home. Cleared by cardiology. Pt Condition on Discharge: Stable Discharge Disposition: Discharge Home Discharge Time: <= 30 minutes Discharge Instructions DIET: Follow Instructions for: Heart Healthy Diet Activities you can perform: Regular-No Restrictions Activities to Avoid: Lifting/Bending, Strenuous Activity Follow up Referrals: Cardiology - 4 Weeks @ [facility] with Melo Villasenor MD New Medications: Amlodipine (Norvasc) 5 Mg Tab 5 MG PO DAILY for Blood Pressure Management, #30 TAB Aspirin (Tgt Aspirin) 81 Mg Chw 81 MG PO DAILY for Blood Clot Prevention, #30 EA Metoprolol Tartrate (Metoprolol Tartrate) 25 Mg Tab 25 MG PO BID for Blood Pressure Management, #62 TAB Ticagrelor (Brilinta) 90 Mg Tab 90 MG PO BID for Blood Clot Prevention, #62 TAB Continued Medications: Allopurinol (Allopurinol) 300 Mg Tab 300 MG PO DAILY for Gout, #30 TAB 0 Refills Fludrocortisone (Fludrocortisone) 0.1 Mg Tab 0.1 MG PO DAILY, #30 TAB 0 Refills Hydrocortisone (Hydrocortisone) 20 Mg Tab 20 MG PO DAILY, #30 TAB 0 Refills Take with food to decrease GI upset Levothyroxine (Levoxyl) 88 Mcg Tab 88 MCG PO DAILY for Thyroid, #30 TAB 0 Refills Discontinued Medications: Amlodipine (Amlodipine) 2.5 Mg Tab 2.5 MG PO DAILY for Blood Pressure Management, #30 TAB 0 Refills Brendan Bryan MD Dec 31, 2017 10:13
== END 2017-12-31 10:55 | disposition home or self-care (01) | DRG 247 ==
LOC: NEPC 14:52 → NEDA 19:23 → OBSVTOIN 21:35 → N04A 22:08 → HCIS 12-30 13:38 → HCPC 12-30 18:28
PROVIDERS: ADMIT Hospitalist; ATTEND Hospitalist
PROC: 4A023N7 Measurement of Cardiac Sampling and Pressure, Left Heart, Percutaneous Approach (ICD-10-PCS; 2017-12-30)
PROC: B2111ZZ Fluoroscopy of Multiple Coronary Arteries using Low Osmolar Contrast (ICD-10-PCS; 2017-12-30)
PROC: B2151ZZ Fluoroscopy of Left Heart using Low Osmolar Contrast (ICD-10-PCS; 2017-12-30)
PROC: 027134Z Dilation of Coronary Artery, Two Arteries with Drug-eluting Intraluminal Device, Percutaneous Approach (ICD-10-PCS; principal; 2017-12-30 12:15)
DX: I21.4 Non-ST elevation (NSTEMI) myocardial infarction (principal); I25.110 Atherosclerotic heart disease of native coronary artery with unstable angina pectoris; N17.9 Acute kidney failure, unspecified; E27.1 Primary adrenocortical insufficiency; I12.9 Hypertensive chronic kidney disease with stage 1 through stage 4 chronic kidney disease, or unspecified chronic kidney disease; Z90.2 Acquired absence of lung [part of]; Z85.118 Personal history of other malignant neoplasm of bronchus and lung; Z85.528 Personal history of other malignant neoplasm of kidney; N18.9 Chronic kidney disease, unspecified; E03.9 Hypothyroidism, unspecified; M10.9 Gout, unspecified; Z90.5 Acquired absence of kidney; Z82.49 Family history of ischemic heart disease and other diseases of the circulatory system; Z85.858 Personal history of malignant neoplasm of other endocrine glands
CPT/HCPCS: 71275; 80048; 80053; 82550; 83690; 84484; 85002; 85025; 85027; 85379; 85610; 85730; 92928; 92929; 93005; 93458; 99152; 99153; C1725; C1769; C1874; C1887; C1893; J1644; J2250; J3246; J7030; Q9967

== ENCOUNTER 2018-01-02 06:32 | Emergency (ER) | payer MEDICARE, BC ==
[~2018-01-02] VITALS: Ht 162.6 cm; Wt 80.0 kg
[~2018-01-02 06:32] MED LIST: ALLO300T2 PO; AMLO5 PO; ASPI81 PO; BRIL90TA PO; FLUD.1 PO; HYDR20TA PO; LEVO88TA30 PO; METO25TA3 PO
[2018-01-02 06:37] VITALS: BP 179/89; PULSE 67; RESP 18; O2SAT 100
[2018-01-02 06:43] VITALS: BP 158/72; PULSE 61; RESP 16; TEMP 97.8; O2SAT 100
--- NOTE | 2018-01-02 07:08 | PD ---
HPI Chief Complaint: Chest Pain Time Seen by Provider: 07:03 Travel History International Travel<30 days: No Contact w/Intl Traveler<30days: No Traveled to known affect area: No History of Present Illness HPI 72-year-old female presents to the emergency department by private transportation for complaint of chest pain and shortness of breath. Patient states had brief episode of chest pain and shortness of breath yesterday but has had persistent discomfort this morning since approximately 5 AM. Patient recently underwent cardiac catheterization by Dr. Gomes and underwent stenting 2. Patient was hospitalized last Saturday for chest pain and back pain was identified to have elevated cardiac enzymes and was encouraged to undergo cardiac catheterization. Patient states she has done well since being discharged to home and has been taking her medications as prescribed until this morning and only took her thyroid medication. Patient also has history of hypertension dyslipidemia and adrenal insufficiency secondary to prior history of adrenal carcinoma. Patient denies other concerns or complaints. No fever no chills no hemoptysis also no nausea or vomiting no abdominal pain no flank pain no hematemesis of coffee-ground emesis no melena hematochezia. Patient states at home her discomfort was quite severe however presently she has no discomfort in her shortness of breath is essentially resolved. Patient denies any lower extremity pain or swelling. No prior history of clotting disorder or autoimmune disorder connective tissue disorder or family history of clotting disorder. Patient does have a strong family history of premature onset heart disease. PFSH Past Medical History Narrative Medical CAD, hypertension dyslipidemia adrenal carcinoma left lung mass adrenal insufficiency cholecystectomy appendectomy left nephrectomy left lung nodule removal; no tobacco use; family history CA; nursing notes reviewed Hx Anticoagulant Therapy: No Arthritis: No Heart Rhythm Problems: No Cancer: Yes (KIDNEY, ADRENAL , L LUNG ) Cardiovascular Problems: Yes (HTN ) High Cholesterol: No Chemotherapy: No Chest Pain: Yes Congestive Heart Failure: No Diabetes: No Diminished Hearing: No Endocrine: Yes Gastrointestinal Disorders: Yes GERD: No Gout: Yes Genitourinary: Yes Hiatal Hernia: Yes (Hernia repaired) Hypertension: Yes Immune Disorder: No Implanted Vascular Access Dvce: Yes Kidney Stones: Yes Musculoskeletal: Yes Neurologic: No Psychiatric: No Reproductive: No Respiratory: No Radiation Therapy: No Thyroid Disease: Yes Ulcer: No Tetanus Vaccination: Unknown Influenza Vaccination: No Past Surgical History Abdominal Surgery: Yes (HERNIA REPAIR/ Gallbladder removed/ Appendix removed) Appendectomy: Yes Body Medical Devices: Right Knee replacement Cholecystectomy: Yes Coronary Stent: Yes Genitourinary Surgery: Yes (L NEPHRECTOMY) Thoracic Surgery: Yes (R LUNG NODULE REMOVED ) Other Surgery: Yes (BILATERAL ADRENAL GALND REMOVAL) Social History Alcohol Use: No Tobacco Use: No Substance Use: No Allergies-Medications (Allergen,Severity, Reaction): Coded Allergies: No Known Allergies (Unverified , 12/27/17) Reported Meds & Prescriptions Reported Meds & Active Scripts Active Tgt Aspirin (Aspirin) 81 Mg Chw 81 Mg PO DAILY Metoprolol Tartrate 25 Mg Tab 25 Mg PO BID Norvasc (Amlodipine Besylate) 5 Mg Tab 5 Mg PO DAILY Reported Allopurinol 300 Mg Tab 300 Mg PO DAILY Fludrocortisone (Fludrocortisone Acetate) 0.1 Mg Tab 0.1 Mg PO DAILY Hydrocortisone 20 Mg Tab 20 Mg PO DAILY Take with food to decrease GI upset Levoxyl (Levothyroxine Sodium) 88 Mcg Tab 88 Mcg PO DAILY Review of Systems Except as stated in HPI: all other systems reviewed are Neg Physical Exam Narrative GENERAL: Well-developed well-nourished female no acute distress or respiratory distress SKIN: Warm and dry. HEAD: Normocephalic. EYES: No scleral icterus. No injection or drainage. NECK: Supple, trachea midline. No JVD or lymphadenopathy. CARDIOVASCULAR: Regular rate and rhythm without murmurs, gallops, or rubs. RESPIRATORY: Breath sounds equal bilaterally. No accessory muscle use. GASTROINTESTINAL: Abdomen soft, non-tender, nondistended. MUSCULOSKELETAL: No cyanosis, or edema. BACK: Nontender without obvious deformity. No CVA tenderness. Data Data Last Documented VS Vital Signs Date Time Temp Pulse Resp B/P (MAP) Pulse Ox O2 Delivery O2 Flow Rate FiO2 01/02/18 06:43 97.8 61 16 158/72 (100) 100 Nasal Cannula 2.00 Orders Orders Electrocardiogram (01/02/18 06:40) Complete Blood Count With Diff (01/02/18 06:40) Basic Metabolic Panel (Bmp) (01/02/18 06:40) Ckmb (Isoenzyme) Profile (01/02/18 06:40) Troponin I (01/02/18 06:40) Chest, Single Ap (01/02/18 06:40) Iv Access Insert/Monitor (01/02/18 06:40) Ecg Monitoring (01/02/18 06:40) Oxygen Administration (01/02/18 06:40) Oximetry (01/02/18 06:40) Prothrombin Time / Inr (Pt) (01/02/18 06:40) Act Partial Throm Time (Ptt) (01/02/18 06:40) B-Type Natriuretic Peptide (01/02/18 06:45) Labs Laboratory Tests Test 01/02/18 06:50 [facility] Medical Decision Making Medical Screen Exam Complete: Yes Emergency Medical Condition: Yes Medical Record Reviewed: Yes Interpretation(s) EKG normal sinus rhythm no acute ST elevation injury pattern or ectopy noted Differential Diagnosis Chest pain, dyspnea, ACS, CA, PE, pneumonia, anemia, dissection Narrative Course Patient placed on fire control officer with continuous pulse oximetry IV access obtained specimens collections of resulting EKG performed review shows no acute ST elevation injury pattern Patient is presently asymptomatic At 7:10 AM care signed over to oncoming physician Dr. Suárez Diagnosis Primary Impression: Dyspnea Jennifer Canela MD Jan 02, 2018 07:07
[2018-01-02 07:10] LABS: AUTOMATED NEUTROPHIL # 3.9 TH/MM3 (1.8-7.7); BASOPHIL % 0.4 % (0.0-2.0); EOSINOPHIL # 0.3 TH/MM3 (0-0.4); EOSINOPHIL % 4.2 % (0.0-4.0); HEMATOCRIT 39.3 % (35.0-46.0); HEMOGLOBIN 13.3 GM/DL (11.6-15.3); LYMPH % 28.3 % (9.0-44.0); LYMPHOCYTE # 1.9 TH/MM3 (1.0-4.8); MEAN CELL VOLUME 90.1 FL (80.0-100.0); MEAN CORPUSCULAR HEMOGLOBIN 30.5 PG (27.0-34.0); MEAN CORPUSCULAR HGB CONC 33.9 % (32.0-36.0); MEAN PLATELET VOLUME 8.9 FL (7.0-11.0); MONOCYTE # 0.6 TH/MM3 (0-0.9); NEUT % 58.1 % (16.0-70.0); PLATELET COUNT 169 TH/MM3 (150-450); RED BLOOD COUNT 4.36 MIL/MM3 (4.00-5.30); RED CELL DISTRIBUTION WIDTH 14.2 % (11.6-17.2); WHITE BLOOD COUNT 6.7 TH/MM3 (4.0-11.0)
[2018-01-02 07:26] LABS: BICARBONATE 25.5 MEQ/L (21.0-32.0); BLOOD UREA NITROGEN 21 MG/DL (7-18); CALCIUM 9.2 MG/DL (8.5-10.1); CHLORIDE 105 MEQ/L (98-107); CREATININE 1.09 MG/DL (0.50-1.00); GLOMERULAR FILTRATION RATE 49 ML/MIN (>89); GLUCOSE,RANDOM 82 MG/DL (74-106); SODIUM (NA) 139 MEQ/L (136-145)
--- NOTE | 2018-01-02 07:34 | RADRPT ---
EXAM DATE/TIME: 01/02/2018 07:21 [place] COMPARISON: CT PULMONARY ANGIOGRAM, December 27, 2017, 17:28. INDICATIONS : Shortness of breath. MEDICAL HISTORY : Hypertension. Carcinoma, lung. Carcinoma, kidney. SURGICAL HISTORY : Appendectomy. Cholecystectomy. ENCOUNTER: Initial ACUITY: 1 day PAIN SCORE: 0/10 LOCATION: Bilateral chest FINDINGS: A single view of the chest demonstrates left retrocardiac density. Right lung clear. Heart normal in size. The cardiomediastinal contours are unremarkable. Osseous structures are intact. CONCLUSION: 1. Spiculated density in the left lower lobe/ retrocardiac region could be an early neoplasm. Recomme nd outpatient PET-CT scan. 2. No infiltrate. Blaine Angeles MD on January 02, 2018 at 7:28 Board Certified Radiologist. This report was verified electronically.
[2018-01-02 07:35] VITALS: BP 155/70; PULSE 65; RESP 14; O2SAT 100
[2018-01-02 07:36] LABS: TROPONIN I 0.02 NG/ML (0.02-0.05)
[2018-01-02] MEDS ORDERED: SODIUM CHLORID 0.9% 500 ML INJ 500 ML IV ONE (08:45)
--- NOTE | 2018-01-02 09:01 | PD ---
Physical Exam Date Seen by Provider: Jan 02, 2018 Time Seen by Provider: 07:00 Narrative Patient was signed out to me by Dr. Canela at change of shift. Please see her H &P for further details. This is a 72-year-old female who unstable angina and ended up having a stent placed. The patient presented with shortness of breath and discomfort in her chest. EKG showed no evidence of acute ST elevation or depression. Cardiac enzymes are within normal limits. The patient has a heart rate in the 60s. Her oxygen saturations were 100% when she arrived. The patient was noted to be slightly dehydrated on labs. Data Data Last Documented VS Vital Signs Date Time Temp Pulse Resp B/P (MAP) Pulse Ox O2 Delivery O2 Flow Rate FiO2 01/02/18 07:35 65 14 155/70 (98) 100 Nasal Cannula 2.00 01/02/18 06:43 97.8 Orders Orders Electrocardiogram (01/02/18 06:40) Complete Blood Count With Diff (01/02/18 06:40) Basic Metabolic Panel (Bmp) (01/02/18 06:40) Ckmb (Isoenzyme) Profile (01/02/18 06:40) Troponin I (01/02/18 06:40) Chest, Single Ap (01/02/18 06:40) Iv Access Insert/Monitor (01/02/18 06:40) Ecg Monitoring (01/02/18 06:40) Oxygen Administration (01/02/18 06:40) Oximetry (01/02/18 06:40) Prothrombin Time / Inr (Pt) (01/02/18 06:40) Act Partial Throm Time (Ptt) (01/02/18 06:40) B-Type Natriuretic Peptide (01/02/18 06:45) CKMB (01/02/18 06:50) CKMB% (01/02/18 06:50) Sodium Chlorid 0.9% 500 Ml Inj (Ns 500 M (01/02/18 08:45) Labs Laboratory Tests Test 01/02/18 06:50 White Blood Count 6.7 TH/MM3 Red Blood Count 4.36 MIL/MM3 Hemoglobin 13.3 GM/DL Hematocrit 39.3 % Mean Corpuscular Volume 90.1 FL Mean Corpuscular Hemoglobin 30.5 PG Mean Corpuscular Hemoglobin Concent 33.9 % Red Cell Distribution Width 14.2 % Platelet Count 169 TH/MM3 Mean Platelet Volume 8.9 FL Neutrophils (%) (Auto) 58.1 % Lymphocytes (%) (Auto) 28.3 % Monocytes (%) (Auto) 9.0 % Eosinophils (%) (Auto) 4.2 % Basophils (%) (Auto) 0.4 % Neutrophils # (Auto) 3.9 TH/MM3 Lymphocytes # (Auto) 1.9 TH/MM3 Monocytes # (Auto) 0.6 TH/MM3 Eosinophils # (Auto) 0.3 TH/MM3 Basophils # (Auto) 0.0 TH/MM3 CBC Comment DIFF FINAL Differential Comment Prothrombin Time 10.0 SEC Prothromb Time International Ratio 1.0 RATIO Activated Partial Thromboplast Time 24.3 SEC Blood Urea Nitrogen 21 MG/DL Creatinine 1.09 MG/DL Random Glucose 82 MG/DL Calcium Level 9.2 MG/DL Sodium Level 139 MEQ/L Potassium Level 3.6 MEQ/L Chloride Level 105 MEQ/L Carbon Dioxide Level 25.5 MEQ/L Anion Gap 9 MEQ/L Estimat Glomerular Filtration Rate 49 ML/MIN Total Creatine Kinase 121 U/L Creatine Kinase MB 1.6 NG/ML Troponin I 0.02 NG/ML B-Type Natriuretic Peptide 34 PG/ML MDM Medical Record Reviewed: Yes Supervised Visit with NORA: No Narrative Course 72-year-old female with history coronary artery disease, who presents today with complaints of shortness of breath and discomfort in her chest. Patient had recent stent placed a few days ago. The patient's been started on Brilinta and metoprolol. She had shortness of breath yesterday as well. Cardiac enzymes and EKG are within normal limits. She was noted to be slightly dehydrated on labs. She has been given a 500 cc fluid bolus. The patient was offered a CT angiogram for completeness. She declined. She states that she did not wish to have any further radiation since she has had a previous CT scan recently. Given the fact that her O2 sats were 100% and she was not tachycardic. The patient is not short of breath at this time. I am comfortable not ordering the CT scan. The patient will be discharged and told to follow-up with her primary care doctor. She is also instructed to follow-up with her sports marketer. She is instructed to return if she develops any worsening symptoms or any other reason that concerns her. Diagnosis Primary Impression: Dyspnea, resolved. Additional Impressions: Atypical chest pain Coronary artery disease Hypertension Additional Instruction: Follow-up with your primary care physician and sports marketer. Return if symptoms return or get worse. Disposition: 01 DISCHARGE HOME Condition: Stable Tian Suárez MD Jan 02, 2018 09:01
[2018-01-02 09:51] VITALS: BP 153/67
--- NOTE | 2018-01-02 20:31 | EKG ---
Date Performed: 01/02/2018 Time Performed: 06:41:03 PTAGE: 72 years EKG: Sinus rhythm NORMAL ECG PREVIOUS TRACING : 12/27/2017 23.12 Since the prior tracing, there has been no significant lomax DOCTOR: Melo Villasenor Interpretating Date/Time 01/02/2018 20:22:30
== END 2018-01-02 09:48 | disposition home or self-care (01) ==
LOC: NEPC 06:32
DX: R07.89 Other chest pain (principal); I25.10 Atherosclerotic heart disease of native coronary artery without angina pectoris; I10 Essential (primary) hypertension; E07.9 Disorder of thyroid, unspecified; M10.9 Gout, unspecified
CPT/HCPCS: 71045; 80048; 82550; 82552; 83880; 84484; 85025; 85610; 85730; 93005; 99285; J7040

== ENCOUNTER 2018-02-10 09:23 | Observation (INO) | payer MEDICARE, BC ==
[2018-02-10] VITALS (9 sets, daily range): BP systolic 114–195; BP diastolic 59–84; PULSE 58–75; RESP 16–19; TEMP 98–98.3; O2SAT 94–100
[~2018-02-10] VITALS: Ht 160 cm; Wt 80.0 kg
[2018-02-10] MEDS ORDERED: CLOP75TA PO (09:36)
--- NOTE | 2018-02-10 09:51 | PD ---
HPI Chief Complaint: Chest Pain Time Seen by Provider: 09:48 Travel History International Travel<30 days: No Contact w/Intl Traveler<30days: No Traveled to known affect area: No History of Present Illness HPI 72-year-old female patient with history of CAD status post stenting, follows up with Dr. Gomes, hypertension, presents to the ER today because of substernal chest pains which she rates at an 8 out of 10 radiating to her back, and some shortness of breath. She denies any nausea, vomiting, or any other symptoms. She does not know of any exacerbating alleviating factors. Modifying Factors: None Associated Signs & Symptoms: Chest pains Risk Factors: CAD with stents PFSH Past Medical History Hx Anticoagulant Therapy: No Arthritis: No Heart Rhythm Problems: No Cancer: Yes (KIDNEY, ADRENAL , L LUNG ) Cardiac Catheterization: Yes Cardiovascular Problems: Yes (HTN ) High Cholesterol: No Chemotherapy: No Chest Pain: Yes Congestive Heart Failure: No Diabetes: No Diminished Hearing: No Endocrine: Yes Gastrointestinal Disorders: Yes GERD: No Gout: Yes Genitourinary: Yes Hiatal Hernia: Yes (Hernia repaired) Hypertension: Yes Immune Disorder: No Implanted Vascular Access Dvce: Yes Kidney Stones: Yes Musculoskeletal: Yes Neurologic: No Psychiatric: No Reproductive: No Respiratory: No Radiation Therapy: No Thyroid Disease: Yes Ulcer: No ?: Not Past Surgical History Abdominal Surgery: Yes (HERNIA REPAIR/ Gallbladder removed/ Appendix removed) Appendectomy: Yes Body Medical Devices: Right Knee replacement Cholecystectomy: Yes Coronary Stent: Yes (x2 12/2017) Genitourinary Surgery: Yes (L NEPHRECTOMY) Thoracic Surgery: Yes (R LUNG NODULE REMOVED ) Other Surgery: Yes (BILATERAL ADRENAL GALND REMOVAL) Social History Alcohol Use: No Tobacco Use: No Substance Use: No Allergies-Medications (Allergen,Severity, Reaction): Coded Allergies: codeine (Verified Allergy, Severe, SPASMS, 02/10/18) Reported Meds & Prescriptions Reported Meds & Active Scripts Active Tgt Aspirin (Aspirin) 81 Mg Chw 81 Mg PO DAILY Metoprolol Tartrate 25 Mg Tab 25 Mg PO BID Norvasc (Amlodipine Besylate) 5 Mg Tab 5 Mg PO DAILY Reported Clopidogrel (Clopidogrel Bisulfate) 75 Mg Tab 75 Mg PO DAILY Allopurinol 300 Mg Tab 300 Mg PO DAILY Fludrocortisone (Fludrocortisone Acetate) 0.1 Mg Tab 0.1 Mg PO DAILY Hydrocortisone 20 Mg Tab 20 Mg PO DAILY Take with food to decrease GI upset Levoxyl (Levothyroxine Sodium) 88 Mcg Tab 88 Mcg PO DAILY Review of Systems Except as stated in HPI: all other systems reviewed are Neg Physical Exam Narrative GENERAL: Well-developed elderly white female patient currently in mild distress. Awake and oriented 3. SKIN: Focused skin assessment warm/dry. HEAD: Atraumatic. Normocephalic. EYES: Pupils equal and round. No scleral icterus. No injection or drainage. ENT: No nasal bleeding or discharge. Mucous membranes pink and moist. NECK: Trachea midline. No JVD. CARDIOVASCULAR: Regular rate and rhythm. No murmur appreciated. Pulses are present and equal bilaterally. RESPIRATORY: No accessory muscle use. Clear to auscultation. Breath sounds equal bilaterally. GASTROINTESTINAL: Abdomen soft, non-tender, nondistended. Hepatic and splenic margins not palpable. MUSCULOSKELETAL: No obvious deformities. No clubbing. No cyanosis. No edema. NEUROLOGICAL: Awake and alert. No obvious cranial nerve deficits. Motor grossly within normal limits. Normal speech. PSYCHIATRIC: Appropriate mood and affect; insight and judgment normal. Data Data Last Documented VS Vital Signs Date Time Temp Pulse Resp B/P (MAP) Pulse Ox O2 Delivery O2 Flow Rate FiO2 02/10/18 09:52 18 100 Room Air 02/10/18 09:26 98.1 60 159/74 (102) Orders Orders Electrocardiogram (02/10/18 09:49) Basic Metabolic Panel (Bmp) (02/10/18 09:49) Ckmb (Isoenzyme) Profile (02/10/18 09:49) Complete Blood Count With Diff (02/10/18 09:49) Magnesium (Mg) (02/10/18 09:49) Prothrombin Time / Inr (Pt) (02/10/18 09:49) Act Partial Throm Time (Ptt) (02/10/18 09:49) Troponin I (02/10/18 09:49) Ecg Monitoring (02/10/18 09:49) Bilateral Bp Monitoring (02/10/18 09:49) Iv Access Insert/Monitor (02/10/18 09:49) Oximetry (02/10/18 09:49) Oxygen Administration (02/10/18 09:49) Aspirin Chew (Aspirin Chew) (02/10/18 10:00) Morphine Inj (Morphine Inj) (02/10/18 10:00) Nitroglycerin 2% Oint (Nitroglycerin 2% (02/10/18 10:00) Sodium Chloride 0.9% Flush (Ns Flush) (02/10/18 10:00) Chest, Pa & Lat (02/10/18 09:49) Admit Order (Ed Use Only) (02/10/18 11:39) Labs Laboratory Tests Test 02/10/18 09:45 White Blood Count 6.6 TH/MM3 Red Blood Count 4.05 MIL/MM3 Hemoglobin 12.4 GM/DL Hematocrit 36.6 % Mean Corpuscular Volume 90.3 FL Mean Corpuscular Hemoglobin 30.6 PG Mean Corpuscular Hemoglobin Concent 33.9 % Red Cell Distribution Width 14.7 % Platelet Count 177 TH/MM3 Mean Platelet Volume 8.5 FL Neutrophils (%) (Auto) 49.3 % Lymphocytes (%) (Auto) 38.5 % Monocytes (%) (Auto) 9.3 % Eosinophils (%) (Auto) 2.5 % Basophils (%) (Auto) 0.4 % Neutrophils # (Auto) 3.3 TH/MM3 Lymphocytes # (Auto) 2.5 TH/MM3 Monocytes # (Auto) 0.6 TH/MM3 Eosinophils # (Auto) 0.2 TH/MM3 Basophils # (Auto) 0.0 TH/MM3 CBC Comment DIFF FINAL Differential Comment Prothrombin Time 10.5 SEC Prothromb Time International Ratio 1.0 RATIO Activated Partial Thromboplast Time 24.9 SEC Blood Urea Nitrogen 25 MG/DL Creatinine 1.01 MG/DL Random Glucose 87 MG/DL Calcium Level 9.2 MG/DL Magnesium Level 1.8 MG/DL Sodium Level 138 MEQ/L Potassium Level 3.8 MEQ/L Chloride Level 103 MEQ/L Carbon Dioxide Level 25.2 MEQ/L Anion Gap 10 MEQ/L Estimat Glomerular Filtration Rate 54 ML/MIN Total Creatine Kinase 95 U/L Troponin I LESS THAN 0.02 NG/ML MDM Medical Decision Making Medical Screen Exam Complete: Yes Emergency Medical Condition: Yes Medical Record Reviewed: Yes Interpretation(s) EKG shows NSR, no ST elevation or depression, and no arrhythmias. No significant T-wave inversions. Laboratory Tests Test 02/10/18 09:45 Monocytes (%) (Auto) 9.3 % (0.0-8.0) Blood Urea Nitrogen 25 MG/DL (7-18) Creatinine 1.01 MG/DL (0.50-1.00) Estimat Glomerular Filtration Rate 54 ML/MIN (>89) Troponin I LESS THAN 0.02 NG/ML Last 24 hours Impressions Chest X-Ray 02/10/18 0949 Signed Impressions: Service Date/Time: Saturday, February 10, 2018 10:19 - CONCLUSION: 1. Chronic interstitial changes suggesting COPD. Pollo Ardon MD Differential Diagnosis Chest pains: ACS versus hypertensive urgency versus pneumonia versus anxiety attack Narrative Course Blood pressure is not that elevated. Chest x-ray did not show any signs of acute pulmonary processes. Cardiac enzymes are negative. At this point, my plan would be to admit her for further evaluation to chest pain especially with her cardiac history. Diagnosis Primary Impression: Chest pain Admitting Information Admitting Physician Requests: Admit Jered Davies MD Feb 10, 2018 09:51
[2018-02-10] MEDS ORDERED: MORPHINE SULFATE 4 MG/ML INJ IV PUSH ONE (10:00)
[2018-02-10] MEDS ORDERED: SODIUM CHLORIDE 0.9% FLUSH 10 ML FLUSH IVF PRN (10:00)
[2018-02-10] MEDS ORDERED: NITROGLYCERIN 2% OINT 1 GM PACKET TOP ONE (10:00)
[2018-02-10] MEDS ORDERED: ASPIRIN 81 MG CHEW TAB PO ONE (10:00)
[2018-02-10 10:13] LABS: AUTOMATED NEUTROPHIL # 3.3 TH/MM3 (1.8-7.7); BASOPHIL % 0.4 % (0.0-2.0); EOSINOPHIL # 0.2 TH/MM3 (0-0.4); EOSINOPHIL % 2.5 % (0.0-4.0); HEMATOCRIT 36.6 % (35.0-46.0); HEMOGLOBIN 12.4 GM/DL (11.6-15.3); LYMPH % 38.5 % (9.0-44.0); LYMPHOCYTE # 2.5 TH/MM3 (1.0-4.8); MEAN CELL VOLUME 90.3 FL (80.0-100.0); MEAN CORPUSCULAR HEMOGLOBIN 30.6 PG (27.0-34.0); MEAN CORPUSCULAR HGB CONC 33.9 % (32.0-36.0); MEAN PLATELET VOLUME 8.5 FL (7.0-11.0); MONO % 9.3 % (0.0-8.0); MONOCYTE # 0.6 TH/MM3 (0-0.9); NEUT % 49.3 % (16.0-70.0); PLATELET COUNT 177 TH/MM3 (150-450); RED BLOOD COUNT 4.05 MIL/MM3 (4.00-5.30); RED CELL DISTRIBUTION WIDTH 14.7 % (11.6-17.2); WHITE BLOOD COUNT 6.6 TH/MM3 (4.0-11.0)
[2018-02-10 10:24] LABS: PROTHROMBIN TIME - PATIENT 10.5 SEC (9.8-11.6)
[2018-02-10 10:48] LABS: BICARBONATE 25.2 MEQ/L (21.0-32.0); BLOOD UREA NITROGEN 25 MG/DL (7-18); CALCIUM 9.2 MG/DL (8.5-10.1); CHLORIDE 103 MEQ/L (98-107); CREATININE 1.01 MG/DL (0.50-1.00); GLOMERULAR FILTRATION RATE 54 ML/MIN (>89); GLUCOSE,RANDOM 87 MG/DL (74-106); MAGNESIUM 1.8 MG/DL (1.5-2.5); SODIUM (NA) 138 MEQ/L (136-145)
[2018-02-10 10:52] LABS: TROPONIN I LESS THAN 0.02 NG/ML (0.02-0.05)
--- NOTE | 2018-02-10 11:16 | RADRPT ---
EXAM DATE/TIME: 02/10/2018 10:19 [facility] COMPARISON: CHEST SINGLE AP, January 02, 2018, 7:21. INDICATIONS : Patient states chest pains. MEDICAL HISTORY : Hypertension. SURGICAL HISTORY : Coronary artery stent. ENCOUNTER: Initial ACUITY: 2 days PAIN SCORE: 3/10 LOCATION: Bilateral chest FINDINGS: The heart is normal in size. The exam demonstrates chronic appearing interstitial changes suggesting COPD. The patient's known nodule at the left base is not visible by chest x-ray. The visualized bony structures are grossly intact. CONCLUSION: 1. Chronic interstitial changes suggesting COPD. Pollo Ardon MD on February 10, 2018 at 11:13 Board Certified Radiologist. This report was verified electronically.
[2018-02-10] MEDS ORDERED: ONDANSETRON HCL 4 MG/2 ML VIAL IV PUSH PRN (12:45)
[2018-02-10] MEDS ORDERED: ACETAMINOPHEN 500 MG CPLT PO PRN (12:45)
--- NOTE | 2018-02-10 13:07 | HHI.HP ---
HPI Primary Care Physician [id number] in [place] Chief Complaint Chest pain History of Present Illness 72-year-old female with history of coronary artery disease with 2 cardiac stents placed [address] Gomes presents to emergency room for further evaluation of chest pain. Onset 8am. Location mid-back. Radiation to center of chest. Characterized as a "hard pain" or pressure. Duration waxed and waned in intensity. No associated symptoms of nausea, vomiting, dyspnea, or diaphoresis. No known precipitating or relieving factors. Hurts to take a deep breath. Endorses similar pain prior to requiring cardiac stent last month. Since cardiac catheterization has remained chest pain-free until this morning. Switch from Blinta to Plavix 2 weeks after catheterization due to dyspnea. Reports compliance with medications. Next appointment with Dr. Gomes scheduled March 2018. Review of Systems General: No fatigue,weakness, fever, chills, recent illness, or change in appetite. Has been a general state of health. HEENT: No SCHILLING, no vision changes, no nasal congestion or drainage, no dysphasia CV: Continues to have chest pressure as stated above. RESP: No SOB, cough, or wheeze GI: No nausea, vomiting, bowel changes, diarrhea, constipation, pain, or distention. : No dysuria, urgency, frequency. History of renal cancer and left nephrectomy. 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 Past Surgical History Left nephrectomy, left lung nodule removed (Summer 2016-cancerous no treatment required) Reported Medications Reported Meds & Active Scripts Active Tgt Aspirin (Aspirin) 81 Mg Chw 81 Mg PO DAILY Metoprolol Tartrate 25 Mg Tab 25 Mg PO BID Norvasc (Amlodipine Besylate) 5 Mg Tab 5 Mg PO DAILY Reported Clopidogrel (Clopidogrel Bisulfate) 75 Mg Tab 75 Mg PO DAILY Allopurinol 300 Mg Tab 300 Mg PO DAILY Fludrocortisone (Fludrocortisone Acetate) 0.1 Mg Tab 0.1 Mg PO DAILY Hydrocortisone 20 Mg Tab 20 Mg PO DAILY Take with food to decrease GI upset Levoxyl (Levothyroxine Sodium) 88 Mcg Tab 88 Mcg PO DAILY Active Ordered Medications Current Medications Medications (Trade) Dose Ordered Sig/Liz Route Start Time Stop Time Status Last Admin (NS Flush) 2 ml UNSCH PRN IVF 02/10/18 10:00 (NS Flush) 2 ml BID IV FLUSH 02/10/18 21:00 UNV (Tylenol) 500 mg Q4H PRN PO 02/10/18 12:45 UNV (Zofran Inj) 4 mg Q6H PRN IV PUSH 02/10/18 12:45 UNV (Nitrostat Sl) 0.4 mg Q5M PRN SL 02/10/18 12:45 UNV (Aspirin) 325 mg DAILY PO 02/11/18 09:00 UNV Family History Father [place] age 52, 2 of 3 brothers CAD Social History Known coronary artery disease and hypertension. No known diabetes. Lifelong nonsmoker. Denies any alcohol use. Past cardiac testing 12/30/2017 Cardiac catheterization (Dr. Gomes) Conclusions: 1. Moderate to severe three-vessel coronary artery disease. 2. Right dominant system. 3. Normal ventricular function with estimated ejection fraction of 60%. 4. Status post angioplasty and stent of the mid LAD and angioplasty and stent of the proximal right coronary. Discussion: The residual borderline disease in the distal right coronary artery will be treated medically. The vessel is fairly small in diameter in this region. If however, the patient has refractory angina in the future could consider percutaneous intervention on this disease. Physical Exam Vital Signs Vital Signs Date Time Temp Pulse Resp B/P (MAP) Pulse Ox O2 Delivery O2 Flow Rate FiO2 02/10/18 12:30 66 16 140/63 (88) 98 Room Air 02/10/18 11:30 58 16 125/64 (84) 99 Room Air 02/10/18 10:30 58 16 128/59 (82) 100 Room Air 02/10/18 09:52 18 100 Room Air 02/10/18 09:52 100 Room Air 02/10/18 09:30 62 16 195/84 (121) 100 Room Air 02/10/18 09:26 98.1 60 19 159/74 (102) 100 Physical Exam GENERAL: Alert WN, WD, NAD, pleasant, elderly female HEAD: NC, AT EYES: Sclera clear, conjunctiva without injection CV: RRR, without murmur, rub, gallop, no JVD, S1-S2 no S3-S4. RESP: Clear lungs throughout bilateral, no crackles, wheeze, rhonchi, symmetrical chest rise, nonlabored, able to speak in full sentences ABD: Soft, NT, ND, no masses, positive bowel tones EXT: Pulses +24, no dependent edema MS: Normal tone 4 extremities, no obvious deformities, full range of motion NEURO: CN II through CN XII grossly intact, motor strength 5/5 PSYCH: A+O 3, pleasant affect, appropriate speech, mood, insight and judgment SKIN: Normal turgor, normal texture, no lesions, no rashes, brisk cap refill, even hair distribution Laboratory Laboratory Tests Test 02/10/18 09:45 White Blood Count 6.6 Red Blood Count 4.05 Hemoglobin 12.4 Hematocrit 36.6 Mean Corpuscular Volume 90.3 Mean Corpuscular Hemoglobin 30.6 Mean Corpuscular Hemoglobin Concent 33.9 Red Cell Distribution Width 14.7 Platelet Count 177 Mean Platelet Volume 8.5 Neutrophils (%) (Auto) 49.3 Lymphocytes (%) (Auto) 38.5 Monocytes (%) (Auto) 9.3 Eosinophils (%) (Auto) 2.5 Basophils (%) (Auto) 0.4 Neutrophils # (Auto) 3.3 Lymphocytes # (Auto) 2.5 Monocytes # (Auto) 0.6 Eosinophils # (Auto) 0.2 Basophils # (Auto) 0.0 CBC Comment DIFF FINAL Differential Comment Prothrombin Time 10.5 Prothromb Time International Ratio 1.0 Activated Partial Thromboplast Time 24.9 Blood Urea Nitrogen 25 Creatinine 1.01 Random Glucose 87 Calcium Level 9.2 Magnesium Level 1.8 Sodium Level 138 Potassium Level 3.8 Chloride Level 103 Carbon Dioxide Level 25.2 Anion Gap 10 Estimat Glomerular Filtration Rate 54 Total Creatine Kinase 95 Troponin I LESS THAN 0.02 Result Diagram: 02/10/18 0945 02/10/18 0945 Imaging Last 48 hours Impressions Chest X-Ray 02/10/18 0949 Signed Impressions: Service Date/Time: Saturday, February 10, 2018 10:19 - CONCLUSION: 1. Chronic interstitial changes suggesting COPD. Pollo Ardon MD Course EKG Sinus rhythm, no ST-T segment changes Caprini VTE Risk Assessment Caprini VTE Risk Assessment: Mod/High Risk (score >= 2) Caprini Risk Assessment Model Point Value = 1 Point Value = 2 Point Value = 3 Point Value = 5 Age 41-60 Minor surgery BMI > 25 kg/m2 Swollen legs Varicose veins or History of unexplained or recurrent spontaneous Oral contraceptives or hormone replacement Sepsis (< 1 month) Serious lung disease, including pneumonia (< 1 month) Abnormal pulmonary function Acute myocardial infarction Congestive heart failure (< 1 month) History of inflammatory bowel disease Medical patient at bed rest Age 61-74 Arthroscopic surgery Major open surgery (> 45 min) Laparoscopic surgery (> 45 min) Malignancy Confined to bed (> 72 hours) Immobilizing plaster cast Central venous access Age >= 75 History of VTE Family history of VTE Factor V Leiden Prothrombin [id number] Lupus anticoagulant Anticardiolipin antibodies Elevated serum homocysteine Heparin-induced thrombocytopenia Other congenital or acquired thrombophilia Stroke (< 1 month) Elective arthroplasty Hip, pelvis, or leg fracture Acute spinal cord injury (< 1 month) Prophylaxis Regimen Total Risk Factor Score Risk Level Prophylaxis Regimen 0-1 Low Early ambulation 2 Moderate Order ONE of the following: *Sequential Compression Device (SCD) *Heparin 5000 units SQ BID 3-4 Higher Order ONE of the following medications: *Heparin 5000 units SQ TID *Enoxaparin/Lovenox 40 mg SQ daily (WT < 150 kg, CrCl > 30 mL/min) *Enoxaparin/Lovenox 30 mg SQ daily (WT < 150 kg, CrCl > 10-29 mL/min) *Enoxaparin/Lovenox 30 mg SQ BID (WT < 150 kg, CrCl > 30 mL/min) AND/OR *Sequential Compression Device (SCD) 5 or more Highest Order ONE of the following medications: *Heparin 5000 units SQ TID (Preferred with Epidurals) *Enoxaparin/Lovenox 40 mg SQ daily (WT < 150 kg, CrCl > 30 mL/min) *Enoxaparin/Lovenox 30 mg SQ daily (WT < 150 kg, CrCl > 10-29 mL/min) *Enoxaparin/Lovenox 30 mg SQ BID (WT < 150 kg, CrCl > 30 mL/min) AND *Sequential Compression Device (SCD) Assessment and Plan Assessment and Plan #1 Chest pain-the chest pain center. Begin ruling out ACS with 3 sets of EKGs and cardiac enzymes. Will be seen and evaluated by Dr. Van Gill. Call placed to Dr. Gomes,patient's waste treatment operator to discuss plan of care. Nitropaste 1 " Q6H. Continue home medications as previously ordered. Discussed importance of establishing with a local primary care provider as she lives criminal justice department chair between [place] and [place]. [address] Gomes. Discussed admission to [facility], presenting symptoms , and reviewed cardiac catheterization with Dr. Gomes. Dr. Gomes recommends adding a long acting nitrate at this time. 1615 Seen and evaluated by Dr. Van Gill. Reassurance provided due to prolonged continuous chest discomfort most likely not cardiac related, however due to recent cardiac intervention will monitor overnight to reevaluate. Bethany Shah Feb 10, 2018 13:07
[2018-02-10 13:57] LABS: TROPONIN I LESS THAN 0.02 NG/ML (0.02-0.05)
[2018-02-10] MEDS ORDERED: HYDR5TAB64 PO (14:47)
[2018-02-10] MEDS ORDERED: HYDR10TA65 PO (14:47)
[2018-02-10] MEDS ORDERED: PILL SPLITTER OTHER PRN (15:00)
[2018-02-10] MEDS ORDERED: HYDROCORTISONE 10 MG TAB PO SCH (16:00)
[2018-02-10 17:06] LABS: TROPONIN I LESS THAN 0.02 NG/ML (0.02-0.05)
--- NOTE | 2018-02-10 17:10 | EKG ---
Date Performed: 02/10/2018 Time Performed: 13:06:25 PTAGE: 72 years EKG: Sinus rhythm NORMAL ECG PREVIOUS TRACING : 02/10/2018 09.35 Since previous tracing, no significant change noted DOCTOR: Van Gill Interpretating Date/Time 02/10/2018 17:09:39
[2018-02-10] MEDS ORDERED: ISOS30TA3 PO (17:53)
[2018-02-10] MEDS ORDERED: NITROGLYCERIN 2% OINT 1 GM PACKET TOPICAL SCH (18:00)
[2018-02-10] MEDS: NITROGLYCERIN 0.4 MG SL 25 TABS/BTL SL PRN ×2 (19:52→19:59)
[2018-02-10] MEDS: ISOSORBIDE MONONITRATE 30 MG CR TAB (IMDUR) PO SCH (19:53)
--- NOTE | 2018-02-10 21:22 | EKG ---
Date Performed: 02/10/2018 Time Performed: 09:35:16 PTAGE: 72 years EKG: Sinus rhythm Since previous tracing, no significant change noted NORMAL ECG PREVIOUS TRACING : 01/02/2018 06.41 DOCTOR: Elisha Robison Interpretating Date/Time 02/10/2018 21:21:28
[2018-02-10] MEDS: SODIUM CHLORIDE 0.9% FLUSH 10 ML FLUSH IV FLUSH SCH (21:29)
[2018-02-10] MEDS: METOPROLOL TARTRATE 25 MG TAB PO SCH (21:29)
[2018-02-11 00:05] VITALS: PULSE 57
[2018-02-11 00:59] VITALS: BP 95/53; PULSE 62; RESP 18; TEMP 98; O2SAT 95
[2018-02-11 04:23] VITALS: PULSE 57
[2018-02-11] MEDS ORDERED: LEVOTHYROXINE SODIUM 88 MCG TAB PO SCH (06:00)
[2018-02-11 06:19] VITALS: BP 115/62; PULSE 64; RESP 18; TEMP 98.6; O2SAT 94
[2018-02-11] MEDS: ISOSORBIDE MONONITRATE 30 MG CR TAB (IMDUR) PO SCH (06:21)
[2018-02-11] MEDS ORDERED: ISOSORBIDE MONONITRATE 30 MG CR TAB (IMDUR) PO SCH (07:00)
[2018-02-11 07:49] VITALS: PULSE 69
[2018-02-11 08:16] VITALS: BP 107/57; PULSE 64; RESP 16; TEMP 97.8; O2SAT 94
[2018-02-11] MEDS ORDERED: ALLOPURINOL 300 MG TAB PO SCH (09:00)
[2018-02-11] MEDS ORDERED: HYDROCORTISONE 10 MG TAB PO SCH (09:00)
[2018-02-11] MEDS ORDERED: ASPIRIN 325 MG TAB PO SCH (09:00)
[2018-02-11] MEDS ORDERED: FLUDROCORTISONE ACETATE 0.1 MG TAB PO SCH (09:00)
[2018-02-11] MEDS ORDERED: amLODIPine BESYLATE 5 MG TAB PO SCH (09:00)
[2018-02-11] MEDS ORDERED: CLOPIDOGREL 75 MG TAB PO SCH (09:00)
[2018-02-11] MEDS ORDERED: ASPIRIN 81 MG CHEW TAB PO SCH (09:00)
[2018-02-11] MEDS: METOPROLOL TARTRATE 25 MG TAB PO SCH (09:21)
[2018-02-11] MEDS: SODIUM CHLORIDE 0.9% FLUSH 10 ML FLUSH IV FLUSH SCH (09:22)
--- NOTE | 2018-02-11 09:33 | PD.CARD.PN ---
Subjective Subjective Remarks Offers no chest discomfort. States that it resolved around 3 in the morning. Discomfort has not recurred. States "I am feeling better." Objective Medications Current Medications Medications (Trade) Dose Ordered Sig/Liz Route Start Time Stop Time Status Last Admin (NS Flush) 2 ml UNSCH PRN IVF 02/10/18 10:00 (NS Flush) 2 ml BID IV FLUSH 02/10/18 21:00 02/11/18 09:22 (Tylenol) 500 mg Q4H PRN PO 02/10/18 12:45 02/10/18 21:29 (Zofran Inj) 4 mg Q6H PRN IV PUSH 02/10/18 12:45 (Nitrostat Sl) 0.4 mg Q5M PRN SL 02/10/18 12:45 02/10/18 19:59 (Zyloprim) 300 mg DAILY PO 02/11/18 09:00 02/11/18 09:20 (Norvasc) 5 mg DAILY PO 02/11/18 09:00 02/11/18 09:21 (Plavix) 75 mg DAILY PO 02/11/18 09:00 02/11/18 09:21 (Florinef) 0.1 mg DAILY PO 02/11/18 09:00 02/11/18 09:21 (Cortef) 15 mg DAILY PO 02/11/18 09:00 02/11/18 09:21 (Synthroid) 88 mcg DAILY@0600 PO 02/11/18 06:00 02/11/18 06:21 (Lopressor) 25 mg BID PO 02/10/18 21:00 02/11/18 09:21 (Aspirin Chew) 81 mg DAILY PO 02/11/18 09:00 02/11/18 09:21 (Pill Splitter) 1 ea UNSCH PRN OTHER 02/10/18 15:00 02/10/18 16:04 (Cortef) 5 mg DAILY@1600 PO 02/10/18 16:00 02/10/18 16:04 (Imdur) 30 mg DAILY@07 PO 02/10/18 19:00 02/11/18 06:21 Vital Signs / I&O Vital Signs Date Time Temp Pulse Resp B/P (MAP) Pulse Ox O2 Delivery O2 Flow Rate FiO2 02/11/18 08:16 97.8 64 16 107/57 (74) 94 02/11/18 06:19 98.6 64 18 115/62 (79) 94 02/11/18 04:23 57 02/11/18 00:59 98.0 62 18 95/53 (67) 95 02/11/18 00:05 57 02/10/18 20:04 75 02/10/18 19:53 98.3 69 18 121/71 (88) 95 02/10/18 16:08 98.0 63 18 114/60 (78) 94 02/10/18 14:12 02/10/18 12:30 66 16 140/63 (88) 98 Room Air 02/10/18 11:30 58 16 125/64 (84) 99 Room Air 02/10/18 10:30 58 16 128/59 (82) 100 Room Air 02/10/18 09:52 18 100 Room Air 02/10/18 09:52 100 Room Air Physical Exam Lungs: Clear to auscultate bilaterally. No wheezing rales or rhonchi. Cardiac: Regular rate and rhythm without murmur gallop or rub. Extremities: No edema. No calf tenderness. No Homans sign. Laboratory Laboratory Tests Test 02/10/18 09:45 02/10/18 13:00 02/10/18 16:13 White Blood Count 6.6 TH/MM3 Red Blood Count 4.05 MIL/MM3 Hemoglobin 12.4 GM/DL Hematocrit 36.6 % Mean Corpuscular Volume 90.3 FL Mean Corpuscular Hemoglobin 30.6 PG Mean Corpuscular Hemoglobin Concent 33.9 % Red Cell Distribution Width 14.7 % Platelet Count 177 TH/MM3 Mean Platelet Volume 8.5 FL Neutrophils (%) (Auto) 49.3 % Lymphocytes (%) (Auto) 38.5 % Monocytes (%) (Auto) 9.3 % Eosinophils (%) (Auto) 2.5 % Basophils (%) (Auto) 0.4 % Neutrophils # (Auto) 3.3 TH/MM3 Lymphocytes # (Auto) 2.5 TH/MM3 Monocytes # (Auto) 0.6 TH/MM3 Eosinophils # (Auto) 0.2 TH/MM3 Basophils # (Auto) 0.0 TH/MM3 CBC Comment DIFF FINAL Differential Comment Prothrombin Time 10.5 SEC Prothromb Time International Ratio 1.0 RATIO Activated Partial Thromboplast Time 24.9 SEC Blood Urea Nitrogen 25 MG/DL Creatinine 1.01 MG/DL Random Glucose 87 MG/DL Calcium Level 9.2 MG/DL Magnesium Level 1.8 MG/DL Sodium Level 138 MEQ/L Potassium Level 3.8 MEQ/L Chloride Level 103 MEQ/L Carbon Dioxide Level 25.2 MEQ/L Anion Gap 10 MEQ/L Estimat Glomerular Filtration Rate 54 ML/MIN Total Creatine Kinase 95 U/L 86 U/L 78 U/L Troponin I LESS THAN 0.02 NG/ML LESS THAN 0.02 NG/ML LESS THAN 0.02 NG/ML Imaging Last 24 hours Impressions Chest X-Ray 02/10/18 0949 Signed Impressions: Service Date/Time: Saturday, February 10, 2018 10:19 - CONCLUSION: 1. Chronic interstitial changes suggesting COPD. Pollo Ardon MD Assessment and Plan Assessment and Plan * Chest pain: Patient was seen by Dr. Van Gill of cardiology and the chest pain center yesterday. Nurse practitioner Bethany spoke with Dr. Gomes. Recommendation were to add Imdur and to monitor overnight and discharge in the morning the patient is feeling okay. Patient states she is feeling better. Has had no recurrent chest discomfort. She also was seen by Dr. Robison cardiology and the chest pain center. At this time patient be discharged home with instructions to have close follow-up with her linotype machinist apprentice Dr. Gmoes within 3-7 days. Resume medications but add Imdur. Return to ED for interval issues. * CAD: Patient had stents recently placed 12/30/17. Continue medications and follow-up with her linotype machinist apprentice. Currently not on statin therapy. Denies history of hyperlipidemia however with recently having stents, she likely would benefit from statin therapy. She we have discussed this with her physician. Patient is stable this time. She is agreeable to this plan. Randy Salcido Feb 11, 2018 09:33
--- NOTE | 2018-02-11 09:39 | HHI.DCPOC ---
Discharge Care Plan Diagnosis: (1) Chest pain (2) CAD (coronary artery disease) (3) H/O heart artery stent (4) Hypertension (5) Hypothyroidism Goals to Promote Your Health Discussed the need of taking cholesterol medication (STATIN) with your physician. * To prevent worsening of your condition and complications * To maintain your health at the optimal level Directions to Meet Your Goals Take your medications as prescribed Follow your dietary instruction Follow activity as directed Keep your appointments as scheduled Take your immunizations and boosters as scheduled If your symptoms worsen call your PCP, if no PCP go to Urgent Care Center or Emergency Room Smoking is Dangerous to Your Health. Avoid second hand smoke Call the 24-hour hour crisis hotline for domestic abuse at Randy Salcido Feb 11, 2018 09:39
--- NOTE | 2018-02-11 18:56 | EKG ---
Date Performed: 02/10/2018 Time Performed: 20:03:40 PTAGE: 72 years EKG: Sinus rhythm NORMAL ECG Since PREVIOUS TRACING , no significant change noted PREVIOUS TRACIN02/08/2018 05.25 DOCTOR: Elisha Robison Interpretating Date/Time 02/11/2018 18:54:46
--- NOTE | 2018-02-11 18:58 | EKG ---
Date Performed: 02/10/2018 Time Performed: 16:15:15 PTAGE: 72 years EKG: Sinus rhythm NORMAL ECG Since PREVIOUS TRACING , no significant change noted PREVIOUS TRACIN02/10/2018 13.06 DOCTOR: Elisha Robison Interpretating Date/Time 02/11/2018 18:57:06
== END 2018-02-11 11:32 | disposition home or self-care (01) ==
LOC: NEPE 09:23 → NEDA 11:41 → NEPHCDU 14:19
PROVIDERS: ADMIT Internal Medicine Cardiovascular Disease; ATTEND Internal Medicine Cardiovascular Disease
DX: R07.89 Other chest pain (principal); R06.02 Shortness of breath; I25.10 Atherosclerotic heart disease of native coronary artery without angina pectoris; I10 Essential (primary) hypertension; E03.9 Hypothyroidism, unspecified; Z95.5 Presence of coronary angioplasty implant and graft; Z79.899 Other long term (current) drug therapy; Z85.528 Personal history of other malignant neoplasm of kidney
CPT/HCPCS: 71046; 80048; 82550; 83735; 84484; 85025; 85610; 85730; 93005; 96374; 99285; G0378; J2270

== ENCOUNTER 2018-02-18 10:53 | Inpatient (IN) | payer MEDICARE, BC ==
[2018-02-18] VITALS (10 sets, daily range): BP systolic 108–124; BP diastolic 49–58; PULSE 58–72; RESP 16–19; TEMP 97.7–98.8; O2SAT 94–99
[~2018-02-18 10:53] MED LIST changes: -BRIL90TA PO; +CLOP75TA PO; +HYDR10TA65 PO; -HYDR20TA PO; +HYDR5TAB64 PO; +ISOS30TA3 PO
[2018-02-18] MEDS ORDERED: diphenhydrAMINE HCL 50 MG CAP PO SCH (12:15)
[2018-02-18] MEDS ORDERED: MIDAZOLAM HCL 2 MG/2 ML VIAL IV PUSH SCH (12:15)
[2018-02-18] MEDS ORDERED: DIAZEPAM 10 MG TAB PO SCH (12:15)
[2018-02-18 12:31] LABS: BASOPHIL % 0.5 % (0.0-2.0); EOSINOPHIL # 0.1 TH/MM3 (0-0.4); EOSINOPHIL % 1.4 % (0.0-4.0); HEMATOCRIT 37.3 % (35.0-46.0); HEMOGLOBIN 12.6 GM/DL (11.6-15.3); LYMPH % 15.4 % (9.0-44.0); LYMPHOCYTE # 1.2 TH/MM3 (1.0-4.8); MEAN CELL VOLUME 90.8 FL (80.0-100.0); MEAN CORPUSCULAR HEMOGLOBIN 30.7 PG (27.0-34.0); MEAN CORPUSCULAR HGB CONC 33.7 % (32.0-36.0); MEAN PLATELET VOLUME 8.6 FL (7.0-11.0); MONO % 7.2 % (0.0-8.0); MONOCYTE # 0.6 TH/MM3 (0-0.9); NEUT % 75.5 % (16.0-70.0); PLATELET COUNT 202 TH/MM3 (150-450); RED BLOOD COUNT 4.11 MIL/MM3 (4.00-5.30); RED CELL DISTRIBUTION WIDTH 14.1 % (11.6-17.2); WHITE BLOOD COUNT 7.9 TH/MM3 (4.0-11.0)
[2018-02-18 12:35] LABS: PROTHROMBIN TIME - PATIENT 10.3 SEC (9.8-11.6)
[2018-02-18] MEDS ORDERED: PILL SPLITTER OTHER PRN (12:45)
[2018-02-18 12:52] LABS: CREATININE 1.26 MG/DL (0.50-1.00)
[2018-02-18] MEDS: SODIUM CHLOR 0.9% 1000 ML INJ 1,000 ML IV SCH ×3 (13:35→22:09)
[2018-02-18] MEDS ORDERED: HEPARIN SODIUM - IV 10,000 UNITS/10 ML VIAL ONE (14:59)
[2018-02-18] MEDS ORDERED: NITROGLYCERIN INJ 5 ML ONE (14:59)
[2018-02-18] MEDS ORDERED: HEPARIN-NS/PF FLUSH BAG 2,000 ML IV FLUSH ONE (14:59)
[2018-02-18] MEDS ORDERED: MIDAZOLAM HCL 2 MG/2 ML VIAL ONE ×2 (14:59→15:55)
[2018-02-18] MEDS ORDERED: MIDAZOLAM HCL 2 MG/2 ML VIAL IV ONE ×2 (15:12→16:00)
[2018-02-18] MEDS ORDERED: HEPARIN SODIUM - IV 10,000 UNITS/10 ML VIAL IV ONE (15:20)
[2018-02-18] MEDS ORDERED: TIROFIBAN INFUSION INJ 250 ML IV ONE (15:20)
[2018-02-18] MEDS ORDERED: TIROFIBAN INFUSION INJ 250 ML IV SCH (15:30)
[2018-02-18] MEDS ORDERED: TIROFIBAN IV ONE (15:30)
[2018-02-18] MEDS ORDERED: ADENOSINE STRESS TEST INJ 90 MG/30 ML VIAL ONE (15:44)
[2018-02-18] MEDS ORDERED: HYDROCORTISONE 10 MG TAB PO SCH (16:00)
[2018-02-18] MEDS ORDERED: CLOPIDOGREL 300 MG TAB PO ONE (16:00)
[2018-02-18] MEDS ORDERED: CLOPIDOGREL 300 MG TAB ONE (16:02)
--- NOTE | 2018-02-18 16:18 | CATHPROC ---
[facility] ([email or web address]) HIS Report Study Information Study Number Admission Scheduled Start Study Start [id number] Feb 18 2018 11:19AM 02/18/2018 Feb 18 2018 2:22PM [place] Service Cardiac Catheterization Admit Source Facility Department Other [facility] - Tape Recording Machine Operator Physician and Clinical Staff Initial Ajay Green Press Operator Yen Martines,ROSENDO Recorder Jimena Ha,RT(R) Scrub Maria T Cartwright,RT(R) Procedures Performed Procedure Location (Site) Vessel Name Coronary Angiograms LCA Left Coronary Coronary Angiograms RCA Right Coronary Drug Eluting Inflatio LAD Mid Left Coronary Drug Eluting Inflatio RCA Dist Right Coronary L Heart Cath PTCA LAD Mid Left Coronary PTCA RCA Dist Right Coronary Wire insertion Fem Art (right) Femoral Art Equipment Time Component Prep Operator Description Size Mfg Part Number Used/Scraped [id number] 15:19 [employer]I [employer] WIRE, ASAHI PROWATER 180CM 180CM Used *[id number] TRANSDUCER, TRUWAVE [id number] 14:23 SINGH H[place]T * Used W/STOCKCOCK *[id number] *[id number] *[id number] *[id number] *[id number] *[id number] 14:23 MEDLINE INDUSTRIES PACK, CCL CUSTOM * Used *[id number] 14:23 MEDLINE PACER PEN, SKIN DUAL W/ RULER * Used *[id number] 15:23 MEDTRONIC BALLOON, 2.0 X 15MM EUPHORA 15MM Used *[id number] 15:55 MEDTRONIC BALLOON, 2.5 X 20MM EUPHORA 20MM Used *[id number] 15:29 MEDTRONIC STENT, 2.25 18MM PATRICIA 2.25 18MM Used *[id number] 16:00 MEDTRONIC STENT, 2.75 30MM PATRICIA 2.75 30MM [id number] Used [id number] 15:25 Myfacepage MEDICAL 30 KODY INDEFLATOR Used *[id number] 14:23 Myfacepage MEDICAL SHEATH, FR6.5 PRELUDE 11CM FR 6.5 038ACT Used *[id number] 14:23 Myfacepage MEDICAL WIRE, 3MMJ .035 180CM 180CM Used *[id number] 14:23 NAMIC MANIFOLD, 4 PORT * Used *[id number] 14:23 NYCOMED OMNIPAQUE, 350 MG, 150ML 150ML [id number] Used [id number] 14:23 [employer] MEDICAL BLANKET,WARM AIR CCL * Used *[id number] 15:30 [employer] PRIME WIRE, VERRATA 185CM 185CM [id number] *[id number] Used 15:40 [employer] PRIME WIRE, VERRATA 185CM 185CM [id number] *[id number] Used Equipment Model, Serial, Lot Number and Expiration Data Description Model Number Serial Number Lot Number Expiration Date PRIME WIRE, VERRATA 185CM [id number] 01-22-2021 PRIME WIRE, VERRATA 185CM [id number] 01-22-2021 STENT, 2.25 18MM PATRICIA [id number] 10-25-2019 STENT, 2.75 30MM PATRICIA [id number] 09-30-2019 History: Current Medications Medication Dosage/Unit Route Frequency Last Date/Time Taken ASA LOPRESSOR Allopurinol Synthroid PLAVIX NAPROXEN NORVASC History: Allergies Allergy Reaction Codeine History: Risk Factors Family History of Hypertension Dyslipidemia Previous [place] Previous Heart Failure Premature CAD Yes No Yes No No Prior Valve Prior PCI Prior PCIDate Prior CABG Surgery No Yes 12/30/2017 No Cerebrovascular Peripheral Artery Chronic Lung On Dialysis Diabetes Disease Disease Disease No No No No No History: Symptoms/Diagnosis Selection Items Chest pain SOB History: CV Disease Selection Items Known CAD History: Stress Tests Stress or Imaging Studies Performed No History: Other Disease Selection Items Cancer HTN History: Other Current Smoker No Labs Hgb (g/dl) Hct (%) WBC (l/cumm) Platelets (thousands) 11.60-17.00 35.00-51.00 4.00-11.00 150.00-450.00 12.6 37.3 7.9 202 Glucose (mg/dl) BUN (mg/dl) Creatinine (mg/dl) BUN:Creatinine (1:x) 74.00-106.00 7.00-18.00 0.50-1.30 10.00-20.00 110 27 1.2 22.5 Na (meq/l) K (meq/l) 136.00-145.00 3.50-5.10 136 4.3 INR (PTT:PT) 0.90-1.10 1 CPK-MB (ng/ML) 0.50-3.60 Not Drawn Medication Medication Total Dose (Bolus/Oral) Medication Total Dosage/Unit 1% XYLOCAINE 20 mL AGGRASTAT BOLUS 0.483 meq/kg HEPARIN 4600 units PLAVIX 600 mg VERSED 3 mg Medications (Bolus/Oral) Medication Time Given Dosage/Unit Administered By Reason VERSED 02/18/2018 3:12:30 PM 2 mg Yen Martines 2 mg VERSED given in lab by Yen Martines RN in Left Antecubital via Peripheral IV. 1% XYLOCAINE 02/18/2018 3:12:49 PM 20 mL Ajay Gomes 20 mL 1% XYLOCAINE given in lab by Ajay Gomes in Right Groin via Subcutaneous. HEPARIN 02/18/2018 3:20:14 PM 4600 units Yen Martines 4600 units HEPARIN given in lab by Yen Martines RN via Peripheral IV. AGGRASTAT BOLUS 02/18/2018 3:24:08 PM 0.483 meq/kg Yen Martines 0.483 meq/kg AGGRASTAT BOLUS given in lab by Yen Martines RN via Peripheral IV. Amount given = 37 .5 meq. VERSED 02/18/2018 3:56:58 PM 1 mg Yen Martines 1 mg VERSED given in lab by Yen Martines RN via Peripheral IV. PLAVIX 02/18/2018 4:09:05 PM 600 mg Yen Martines 600 mg PLAVIX given in lab by Yen Martines RN via Oral. Medication (Drip) Medication Time Given Dosage/Unit Concentration/Unit Diluent (ml) Solution AGGRASTAT DRIP 02/18/2018 3:28:12 PM 0.15 mcg/kg/min 12.5 mg 250 NaCl .9 0.15 mcg/kg/min AGGRASTAT DRIP given in lab by Yen Martines RN via Peripheral IV. Pump/Drip Flow = 14 ml/hr using NaCl .9 with a concentration of 12.5 mg in 250 ml. IV Solutions 02/18/2018 2:44:25 PM 0 mL (IV) 500 NaCl .9 Patient arrived on IV Solutions in Left Antecubital via Peripheral IV. Pump/Drip Flow = 20 ml/hr usin g NaCl .9. Initial Case Assessment Cardiovascular HR Rhythm NIBP Chest Pain 62 reg 119/62 0 Edema Present Skin color Skin None Normal Warm Circulatory - Right Pulses Dorsalis Pedis Femoral 3 3 Scale (0,1,2,3,4,d) Circulatory - Left Pulses Dorsalis Pedis Femoral 3 3 Scale (0,1,2,3,4,d) Circulatory - Lower Extremities Color Lower Right Color Lower Left Normal Normal Neurological State Oriented to time-place- Alert Moves all extremities person Respiration - General Respiration Rate SpO2 (%) (B/min) 8 96 Final Case Assessment Cardiovascular HR Rhythm NIBP Chest Pain 72 REG 118/57 0 Edema Present Skin color Skin None Normal Warm Circulatory - Right Pulses Dorsalis Pedis Femoral 3 3 Scale (0,1,2,3,4,d) Circulatory - Left Pulses Dorsalis Pedis Femoral 3 3 Scale (0,1,2,3,4,d) Circulatory - Lower Extremities Color Lower Right Color Lower Left Normal Normal Neurological State Oriented to time-place- Alert Moves all extremities person Respiration - General Respiration Rate SpO2 (%) (B/min) 19 95 Chronological Log Time Study Chronological Log 14:44:13 Patient arrived via Bed. 14:44:14 Patient Name, D.O.B, / Armband Verified By R.N. 14:44:15 Consent signed by the physician and the patient and verified by the Tape Recording Machine Operator staff. 14:44:15 Pre-op and post- op instructions given; patient acknowledges understanding of instructions. 14:44:16 Verbal Stimulation=2 Physical Stimulation=2 Airway=2 Respiration=2 TOTAL=8. (0=absent, 1=li mited, 2=present) 14:44:17 Presedation assessment performed by Tape Recording Machine Operator RN. 14:44:20 Immediate Presedation assesment performed by physician. 14:44:21 Patient has been NPO for More than 6Hrs. Skin Breakdown-none 14:44:21 14:44:22 Patient Warmer Placed on the Table. 14:44:23 Kathleen Prominences Protected 14:44:25 A # 20 IV was noted in the Antecubital (left). Grade = 0 14:44:25 Patient arrived on IV Solutions in Left Antecubital via Peripheral IV. Pump/Drip Flow = 20 ml/hr using NaCl .9. 14:44:26 History and physical on the chart or being dictated. Vitals capture started with the following parameters, Patient=Adult, Interval=5 min, Initial Pr ncmorz=770 mmHg, 14:49:15 Deflation Rate=5 mmHg, Cuff placed on right arm 14:49:57 Reference ECG taken 14:50:33 HR=64 bpm, LJFN=206/59 mmhg, SpO2=97.0 %, Resp=21 B/min, Pain=0, Huan=10, Ballard=2 14:55:28 HR=60 bpm, RGEY=508/57 mmhg, SpO2=97.0 %, Resp=15 B/min, Pain=0, Huan=10, Ballard=2 14:56:50 Pressure channel 1 zeroed. 14:57:32 MD texted 14:59:54 HR=60 bpm, YRFB=112/58 mmhg, SpO2=97.0 %, Resp=10 B/min, Pain=0, Huan=10, Ballard=2 Assessment: Initial Case, HR=62 BPM, Rhythm=reg, OTTD=077/62 mmhg, Chest Pain=0, Edema=None, Co jann=Normal, Skin = Warm Right Pulses: El Ped=3, Femoral=3 Left Pulses: El Ped=3, Femoral=3 15:04:15 Lower Right Extremities: Color=Normal Lower Left Extremities: Color=Normal Neurological: State=Alert, Ox3, ABBOTT Respiration: Resp=8 B/min, SpO2=96 % 15:04:53 HR=63 bpm, HCQJ=828/62 mmhg, SpO2=96.0 %, Resp=4 B/min, Pain=0, Huan=10, Ballard=2 15:05:07 MD responded 15:09:44 MD arrived. 15:10:35 HR=59 bpm, ZKVZ=989/63 mmhg, SpO2=97.0 %, Resp=14 B/min, Pain=0, Huan=10, Ballard=2 Time Out. Correct patient, correct procedure, correct physician, power injector not loaded with contrast with surgical 15:12:21 team present. Time Out Concurred by MD and individual staff in procedure. 15:12:30 2 mg VERSED given in lab by Yen Martines, RN in Left Antecubital via Peripheral IV. 15:12:39 Case Start 15:12:42 Verbal Stimulation=2 Physical Stimulation=2 Airway=2 Respiration=2 TOTAL=8. (0=absent, 1=li mited, 2=present) 15:12:49 20 mL 1% XYLOCAINE given in lab by Ajay Gomes in Right Groin via Subcutaneous. 15:13:38 Access site was Right Femoral Artery. 15:13:43 A wire was inserted via Fem Art (right). 15:13:45 A SHEATH, FR6.5 PRELUDE 11CM FR 6.5 was advanced into the Fem Art (right) using the Percuta neous technique. A JL 4.0 INFINITI CATHETER FR 6 was advanced over a wire. OMNIPAQUE, 350 MG, 150ML 150ML was us ed for 15:14:04 injections. Recorded Pressure: Ao, HR=66, Condition=Condition 1 15:14:52 (Aorta) Ao 99/46/67 15:15:00 HR=66 bpm, KFER=591/51 mmhg, SpO2=93.0 %, Resp=17 B/min, Pain=0, Huan=10, Ballard=2 15:15:02 The LCA was injected and visualized at various angles. OMNIPAQUE, 350 MG, 150ML 150ML used . 15:16:06 Catheter was removed A 3DRC INFINITI CATHETER FR 6 was advanced over a wire. OMNIPAQUE, 350 MG, 150ML 150ML was used for 15:16:47 injections. 15:17:47 Catheter was removed 15:19:55 HR=73 bpm, RKNO=002/47 mmhg, SpO2=94.0 %, Resp=22 B/min, Pain=0, Huan=10, Ballard=2 15:20:14 4600 units HEPARIN given in lab by Yen Martines, RN via Peripheral IV. A 3DRC GUIDE CATHETER FR 6 was advanced over a wire. OMNIPAQUE, 350 MG, 150ML 150ML was used fo r 15:20:25 injections. 15:21:26 A WIRE, ASAHI PROWATER 180CM 180CM was inserted via Fem Art (right). 15:22:16 Interventional wire has crossed the lesion 15:22:55 A BALLOON, 2.0 X 15MM EUPHORA 15MM was inserted over WIRE, ASAHI PROWATER 180CM 180CM via t he RCA Dist. 15:24:08 0.483 meq/kg AGGRASTAT BOLUS given in lab by Yen Martines, RN via Peripheral IV. Amount given = 37.5 meq. A BALLOON, 2.0 X 15MM EUPHORA 15MM over a WIRE, ASAHI PROWATER 180CM 180CM in the RCA Dist was inflated 15:24:34 using a 30 KODY INDEFLATOR at 12 kody for 35 sec. 15:24:54 HR=75 bpm, ESAF=039/51 mmhg, SpO2=95.0 %, Resp=23 B/min, Pain=0, Huan=10, Ballard=2 15:25:22 The RCA was injected and visualized at various angles. OMNIPAQUE, 350 MG, 150ML 150ML used . A BALLOON, 2.0 X 15MM EUPHORA 15MM over a WIRE, ASAHI PROWATER 180CM 180CM in the RCA Dist was inflated 15:25:42 using a 30 KODY INDEFLATOR at 13 kody for 30 sec. 15::42 Catheter was removed A STENT, 2.25 18MM PATRICIA 2.25 18MM was advanced through a 3DRC GUIDE CATHETER FR 6 over a WIRE, ASADC 15:28:05 PROWATER 180CM 180CM. 0.15 mcg/kg/min AGGRASTAT DRIP given in lab by Yen Martines, RN via Peripheral IV. Pump/Drip Flow = 14 ml/hr 15:28:12 using NaCl .9 with a concentration of 12.5 mg in 250 ml. 15:28:18 Activated Clotting Time Drawn A STENT, 2.25 18MM PATRICIA 2.25 18MM was deployed using a 30 KODY INDEFLATOR at 13 atmospheres for 30 seconds 15:29:49 in the RCA Dist. 15:29:55 HR=72 bpm, ZGPL=591/53 mmhg, SpO2=96.0 %, Resp=20 B/min, Pain=0, Huan=10, Ballard=2 15:30:51 Delivery device removed 15:32:33 The RCA was injected and visualized at various angles. OMNIPAQUE, 350 MG, 150ML 150ML used . 15:32:41 Wire removed After removing the current catheter a XB 3.5 GUIDE CATHETER FR 6 was advanced over a WIRE, 3MMJ .035 180CM 15:33:05 180CM. LAD 15:34:01 ACT (Normal Range 90-180) = 299 15:34:54 HR=73 bpm, GMTP=157/50 mmhg, SpO2=97.0 %, Resp=24 B/min, Pain=0, Huan=10, Ballard=2 15:39:57 HR=69 bpm, VDXY=276/57 mmhg, SpO2=97.0 %, Resp=18 B/min, Pain=0, Huan=10, Ballard=2 15:44:56 HR=70 bpm, PLDI=394/55 mmhg, SpO2=96.0 %, Resp=21 B/min, Pain=0, Huan=10, Ballard=2 15:48:27 Activated Clotting Time Drawn 15:48:35 Pressure channel 1 zeroed. 15:49:50 A PRIME WIRE, VERRATA 185CM 185CM was inserted via Fem Art (right). 15:49:55 HR=68 bpm, ZPMX=510/55 mmhg, SpO2=96.0 %, Resp=15 B/min, Pain=0, Huan=10, Ballard=2 15:50:11 Wire removed for reshaping 15:50:54 A PRIME WIRE, VERRATA 185CM 185CM was inserted via Fem Art (right). 15:52:07 Flow Wire was was placed in the RCA Dist. The FFR measures ~FFR~ percent. The IFR measures 0.68 Percent. IFR 15:53:33 ACT (Normal Range 90-180) = 300 15:54:56 HR=69 bpm, NMHN=073/55 mmhg, SpO2=96.0 %, Resp=16 B/min, Pain=0, Huan=10, Ballard=2 15:54:56 A BALLOON, 2.5 X 20MM EUPHORA 20MM was inserted over PRIME WIRE, VERRATA 185CM 185CM via th e LAD Mid. A BALLOON, 2.5 X 20MM EUPHORA 20MM over a PRIME WIRE, VERRATA 185CM 185CM in the LAD Mid was in flated 15:56:13 using a 30 KODY INDEFLATOR at 13 kody for 30 sec. 15:56:58 1 mg VERSED given in lab by Yen Martines, RN via Peripheral IV. A BALLOON, 2.5 X 20MM EUPHORA 20MM over a PRIME WIRE, VERRATA 185CM 185CM in the LAD Mid was in flated 15:57:09 using a 30 KODY INDEFLATOR at 13 kody for 30 sec. 15:58:10 Balloon Removed. A STENT, 2.75 30MM PATRICIA 2.75 30MM was advanced through a XB 3.5 GUIDE CATHETER FR 6 over a PRIM E WIRE, 15:59:38 VERRATA 185CM 185CM. 15:59:55 HR=69 bpm, TZLT=550/57 mmhg, SpO2=96.0 %, Resp=19 B/min, Pain=0, Huan=10, Ballard=2 A STENT, 2.75 30MM PATRICIA 2.75 30MM was deployed using a 30 KODY INDEFLATOR at 13 atmospheres for 30 seconds 16:01:05 in the LAD Mid. 16:02:17 Delivery device removed 16:02:31 The LCA was injected and visualized at various angles. OMNIPAQUE, 350 MG, 150ML 150ML use d. 16:03:13 Wire removed 16:03:16 Catheter was removed Assessment: Final Case, HR=72 BPM, Rhythm=REG, ZYNM=324/57 mmhg, Chest Pain=0, Edema=None, Col or=Normal, Skin = Warm Right Pulses: El Ped=3, Femoral=3 Left Pulses: El Ped=3, Femoral=3 16:03:34 Lower Right Extremities: Color=Normal Lower Left Extremities: Color=Normal Neurological: State=Alert, Ox3, ABBOTT Respiration: Resp=19 B/min, SpO2=95 % 16:04:04 In the Fem Art (right) the SHEATH, FR6.5 PRELUDE 11CM FR 6.[address] by Maria T Cartwright RT(R). 16:04:11 Case End 16:04:13 Sterile dressing applied to site 16:04:14 No case complications noted. 16:04:18 Cine recording checked. 16:04:19 Bedside Report will be given. 16:04:21 Implantable Device card placed in patient's chart. 16:04:26 A Left Heart Cath was performed. 16:04:56 HR=73 bpm, WDLT=215/70 mmhg, SpO2=95.0 %, Resp=17 B/min, Pain=0, Huan=10, Ballard=2 16:09:05 600 mg PLAVIX given in lab by Yen Martines RN via Oral. 16:09:55 HR=71 bpm, OVRS=020/61 mmhg, SpO2=96.0 %, Pain=0, Huan=10, Ballard=2 16:10:44 A Left Heart Cath was performed. 16:12:01 [facility] 16:12:07 Clinical correlaton risk stratification. End Study - Contrast Media Used In Study Contrast Total Opened (mL) Total Used (mL) Total Wasted (mL) Omnipaque 160 160 0 End Study - Maximum Contrast Load Max Contrast Load (mL) 323.9 End Study - Radiation Exposure Fluoro Time (minutes) 8.7 End Study - Patient Disposition Complications Transferred To Interventional Outcome No Regular Bed successful
[2018-02-18] MEDS ORDERED: TEMAZEPAM 15 MG CAP PO PRN (16:30)
--- NOTE | 2018-02-18 17:26 | MA ---
cc: Ajay Gomes MD, Glenn H MD DATE: 02/18/2018 PROCEDURE: Selective coronary angiography, angioplasty and stent of the distal right coronary artery, instant wave free ratio (IFR) determination of the mid LAD, angioplasty and stent of the mid LAD. PROCEDURE NOTE: The patient was brought to the cardiac catheterization laboratory in a fasting state after having signed informed consent. The right groin was prepped and draped as per policy and anesthetized with 1% lidocaine. Arterial access was obtained via the right femoral artery and a 6-Hungarian sheath placed. Coronary arteriography was performed using 6-Hungarian Ronnie left 4.0 and right progressive catheters. Left ventriculography was not done. Percutaneous coronary intervention was done as described below. There were no apparent immediate complications. HEMODYNAMIC DATA: Aorta 99/46 with a mean of 67. CORONARY ARTERIOGRAPHY: The left main has minimal proximal disease. The left anterior descending is diffusely diseased. There is likely no normal vessel. A stent is evident in the proximal LAD and there appears to be 60% narrowing of the distal aspect of the stent, which may be under deployed distally. The proximal LAD also has diffuse up to 20% disease. The mid LAD has diffuse 60% to 65% disease. In the distal LAD, there is a somewhat eccentric up to 50% stenosis diffusely. The LAD gives rise to a medium size diagonal which has diffuse ostial to proximal disease resulting in up to 50% stenosis. The left circumflex is a medium-sized vessel giving rise to a relatively small obtuse marginal. There is diffuse proximal to mid left circumflex disease resulting in up to 40% to 50% stenosis. There is diffuse ostial to proximal disease of the obtuse marginal resulting in up to 40% to 50% stenosis. The right coronary artery is a medium-sized dominant vessel, demonstrating a stent in its proximal portion. The stent is widely patent. In the very proximal right coronary, there is diffuse up to 40% stenosis. In the distal right coronary, right at the takeoff and probably including the origin of the posterior descending artery there is 90% to 95% stenosis. The continuation of the right coronary is very small in caliber. PERCUTANEOUS CORONARY INTERVENTION DESCRIPTION: Aggrastat was given as per protocol. Adequate heparin was given during the procedure to achieve an ACT of greater than 250 seconds. Using a 6-Hungarian progressive right guiding catheter, the ostium of the right coronary artery was reengaged. Using a 0.014 [place] guidewire, the distal disease was crossed without difficulty and the tip of the wire positioned in the distal posterior descending artery. Pre-dilation was done using a 2.0 mm Euphora balloon catheter. Stenting was done using a 2.25 x 18 mm Resolute Andrez stent, which was deployed at 13 atmospheres for 30 seconds. Final angiography shows good results with reduction of the initial stenosis to roughly 0% residual with no definite evidence for dissection or distal embolization. Because of the borderline disease in the mid LAD angiographically, it was decided to perform instant wave-free ratio determination. The guiding catheter was exchanged for an XB 3.5. A [employer] pressure wire was normalized and then advanced distal to the mid disease. The instant wave free ratio was measured at 0.68, confirming the presence of hemodynamically significant disease. Therefore, it was decided to intervene on this region. Pre-dilation was done using a 2.75 mm Euphora balloon catheter. Stenting was done using a 2.75 x 30 mm Resolute Andrez stent, which was deployed at approximately 13-14 atmospheres for 30 seconds. Final angiography shows overall good results with reduction of the diffuse disease to roughly 0% residual with no definite evidence for dissection or distal embolization. The patient tolerated the procedure well. She did develop chest pain with balloon inflations. CONCLUSIONS: 1. Moderate to severe, fairly diffuse 3-vessel coronary artery disease. 2. Right dominant system. 3. Status post angioplasty and stent of the distal right coronary artery. 4. Status post instant wave-free ratio determination of the mid left anterior descending and subsequent angioplasty and stent of diffuse disease in the mid left anterior descending. MD RITESH Carmichael//noemi , 04:15 PM , 04:57 PM VALE
[2018-02-18] MEDS: METOPROLOL TARTRATE 25 MG TAB PO SCH (22:11)
[2018-02-19] VITALS (10 sets, daily range): BP systolic 108–140; BP diastolic 56–63; PULSE 62–85; RESP 16; TEMP 97.9–98.5; O2SAT 96–97
[2018-02-19] MEDS: SODIUM CHLOR 0.9% 1000 ML INJ 1,000 ML IV SCH ×2 (02:19→07:09)
[2018-02-19] MEDS ORDERED: LEVOTHYROXINE SODIUM 88 MCG TAB PO SCH (06:00)
[2018-02-19 06:46] LABS: AUTOMATED NEUTROPHIL # 3.3 TH/MM3 (1.8-7.7); BASOPHIL % 0.6 % (0.0-2.0); EOSINOPHIL # 0.1 TH/MM3 (0-0.4); EOSINOPHIL % 2.5 % (0.0-4.0); HEMATOCRIT 34.9 % (35.0-46.0); HEMOGLOBIN 11.6 GM/DL (11.6-15.3); LYMPH % 27.2 % (9.0-44.0); LYMPHOCYTE # 1.5 TH/MM3 (1.0-4.8); MEAN CELL VOLUME 91.5 FL (80.0-100.0); MEAN CORPUSCULAR HEMOGLOBIN 30.5 PG (27.0-34.0); MEAN CORPUSCULAR HGB CONC 33.4 % (32.0-36.0); MONO % 9.8 % (0.0-8.0); MONOCYTE # 0.5 TH/MM3 (0-0.9); NEUT % 59.9 % (16.0-70.0); PLATELET COUNT 171 TH/MM3 (150-450); RED BLOOD COUNT 3.81 MIL/MM3 (4.00-5.30); RED CELL DISTRIBUTION WIDTH 14.3 % (11.6-17.2); WHITE BLOOD COUNT 5.5 TH/MM3 (4.0-11.0)
[2018-02-19] MEDS ORDERED: ISOSORBIDE MONONITRATE 30 MG CR TAB (IMDUR) PO SCH (07:00)
[2018-02-19 07:10] LABS: BICARBONATE 23.1 MEQ/L (21.0-32.0); CALCIUM 8.1 MG/DL (8.5-10.1); CHOLESTEROL/ HDL RATIO 2.81 RATIO; CREATININE 1.04 MG/DL (0.50-1.00); HDL CHOLESTEROL 40.8 MG/DL (40.0-60.0)
[2018-02-19] MEDS ORDERED: IOHEXOL 350 MG/ML 100 ML BTL (for Cath Lab) OTHER ONE (07:12)
--- NOTE | 2018-02-19 08:25 | PD.CARD.PN ---
Subjective Subjective Remarks Feels good. Denies CP, dyspnea, groin pain. Objective Medications Item Value Date Time Amlodipine 5 mg 02/19/18 0900 Besylate DAILY/PO (Norvasc) Clopidogrel 75 mg 02/19/18 0900 Bisulfate DAILY/PO (Plavix) Aspirin 325 mg 02/19/18 0900 (Aspirin) DAILY/PO Isosorbide 30 mg 02/19/18 0700 Mononitrate DAILY@07/PO 02/19/18 0709 (Imdur) Metoprolol 25 mg 02/18/18 2100 Tartrate BID/PO 02/18/18 2211 (Lopressor) Tirofiban/Sodium 250 ml @ 14 mls/hr 02/18/18 1530 Chloride Q17H/IV 02/19/18 0325 Current Medications Medications (Trade) Dose Ordered Sig/Liz Route Start Time Stop Time Status Last Admin Sodium Chloride 1,000 ml @ 100 mls/hr Q10H IV 02/18/18 12:09 02/23/18 12:08 02/18/18 13:35 (Benadryl) 50 mg DRIVER MEDIC PO 02/18/18 12:15 02/22/18 12:14 (Valium) 10 mg DRIVER MEDIC PO 02/18/18 12:15 02/22/18 12:14 (Versed Inj) 1 mg DRIVER MEDIC IV PUSH 02/18/18 12:15 02/22/18 12:14 (Zyloprim) 300 mg DAILY PO 02/19/18 09:00 (Norvasc) 5 mg DAILY PO 02/19/18 09:00 (Plavix) 75 mg DAILY PO 02/19/18 09:00 (Florinef) 0.1 mg DAILY PO 02/19/18 09:00 (Cortef) 5 mg DAILY@1600 PO 02/18/18 16:00 02/18/18 17:31 (Cortef) 15 mg DAILY PO 02/19/18 09:00 (Imdur) 30 mg DAILY@07 PO 02/19/18 07:00 02/19/18 07:09 (Synthroid) 88 mcg DAILY@0600 PO 02/19/18 06:00 02/19/18 07:09 (Lopressor) 25 mg BID PO 02/18/18 21:00 02/18/18 22:11 (Pill Splitter) 1 ea UNSCH PRN OTHER 02/18/18 12:45 (Restoril) 15 mg HS PRN PO 02/18/18 16:30 (Aspirin) 325 mg DAILY PO 02/19/18 09:00 Tirofiban/Sodium Chloride 250 ml @ 14 mls/hr Q17H IV 02/18/18 15:30 02/19/18 09:30 02/19/18 03:25 Vital Signs / I&O Vital Signs Date Time Temp Pulse Resp B/P (MAP) Pulse Ox O2 Delivery O2 Flow Rate FiO2 02/19/18 07:04 97.9 85 16 140/63 (88) 97 02/19/18 05:00 68 02/19/18 04:00 63 02/19/18 03:00 98.5 62 16 108/56 (73) 96 02/19/18 03:00 62 02/19/18 02:00 65 02/19/18 01:00 70 02/19/18 00:00 68 02/18/18 23:00 70 02/18/18 23:00 98.8 70 16 111/54 (73) 97 02/18/18 22:00 72 02/18/18 21:00 68 02/18/18 20:00 66 02/18/18 19:00 68 02/18/18 19:00 98.4 68 18 122/49 (73) 99 02/18/18 18:00 66 02/18/18 17:00 60 02/18/18 16:30 66 02/18/18 16:30 97.7 64 19 124/54 (77) 94 02/18/18 14:03 58 02/18/18 11:38 98.0 71 17 108/58 (75) 98 I/O 02/18/18 02/18/18 02/18/18 02/19/18 02/19/18 02/19/18 07:00 15:00 23:00 07:00 15:00 23:00 Intake Total 120 ml 2220 ml Output Total 300 ml 1050 ml Balance -180 ml 1170 ml Intake Oral 120 ml 720 ml IV Total 1500 ml Output Urine Total 300 ml 1050 ml # Bowel Movements 0 Physical Exam GENERAL: Well developed, well nourished. No acute distress. HEENT: Jugular venous pressure is normal. CHEST: Lungs clear to auscultation bilaterally. CARDIAC: Regular rate and rhythm without S3, S4, or murmur. ABDOMEN: Soft, nontender, no hepatosplenomegaly. Bowel sounds present. EXTREMITIES: No clubbing, cyanosis, or edema. Right groin nontender, no hematoma. Laboratory Laboratory Tests Test 02/18/18 12:20 02/19/18 05:06 White Blood Count 7.9 TH/MM3 5.5 TH/MM3 Red Blood Count 4.11 MIL/MM3 3.81 MIL/MM3 Hemoglobin 12.6 GM/DL 11.6 GM/DL Hematocrit 37.3 % 34.9 % Mean Corpuscular Volume 90.8 FL 91.5 FL Mean Corpuscular Hemoglobin 30.7 PG 30.5 PG Mean Corpuscular Hemoglobin Concent 33.7 % 33.4 % Red Cell Distribution Width 14.1 % 14.3 % Platelet Count 202 TH/MM3 171 TH/MM3 Mean Platelet Volume 8.6 FL 9.0 FL Neutrophils (%) (Auto) 75.5 % 59.9 % Lymphocytes (%) (Auto) 15.4 % 27.2 % Monocytes (%) (Auto) 7.2 % 9.8 % Eosinophils (%) (Auto) 1.4 % 2.5 % Basophils (%) (Auto) 0.5 % 0.6 % Neutrophils # (Auto) 6.0 TH/MM3 3.3 TH/MM3 Lymphocytes # (Auto) 1.2 TH/MM3 1.5 TH/MM3 Monocytes # (Auto) 0.6 TH/MM3 0.5 TH/MM3 Eosinophils # (Auto) 0.1 TH/MM3 0.1 TH/MM3 Basophils # (Auto) 0.0 TH/MM3 0.0 TH/MM3 CBC Comment DIFF FINAL DIFF FINAL Differential Comment Prothrombin Time 10.3 SEC Prothromb Time International Ratio 1.0 RATIO Blood Urea Nitrogen 27 MG/DL 20 MG/DL Creatinine 1.26 MG/DL 1.04 MG/DL Random Glucose 110 MG/DL 74 MG/DL Calcium Level 9.0 MG/DL 8.1 MG/DL Sodium Level 136 MEQ/L 142 MEQ/L Potassium Level 4.3 MEQ/L 3.9 MEQ/L Chloride Level 103 MEQ/L 110 MEQ/L Carbon Dioxide Level 24.0 MEQ/L 23.1 MEQ/L Anion Gap 9 MEQ/L 9 MEQ/L Estimat Glomerular Filtration Rate 42 ML/MIN 52 ML/MIN Total Creatine Kinase 55 U/L Triglycerides Level 120 MG/DL Cholesterol Level 115 MG/DL LDL Cholesterol 50 MG/DL HDL Cholesterol 40.8 MG/DL Cholesterol/HDL Ratio 2.81 RATIO Assessment and Plan Problem List: (1) CAD (coronary artery disease) ICD Codes: I25.10 - Atherosclerotic heart disease of [place] coronary artery without angina pectoris Status: Chronic Plan: Doing well s/p stents of distal RCA and mid LAD yesterday. Groin stable. Renal indices stable. Plan discharge home today, same home medications plus atorvastatin, ad kiersten activity, 3 week f/u. (2) Hyperlipidemia ICD Codes: E78.5 - Hyperlipidemia, unspecified Status: Chronic Plan: Good fasting lipid profile this morning, on no chol med. Nonetheless have recommended statin therapy in light of her progressive CAD. Start atorvastatin 20 mg qd. (3) Hypertension ICD Codes: I10 - Essential (primary) hypertension Status: Chronic Plan: Stable. Mostly normotensive. Code Status full code Discussed Condition With patient Problem Qualifiers (1) CAD (coronary artery disease): Qualified Codes: I25.110 - Atherosclerotic heart disease of [place] coronary artery with unstable angina pectoris (2) Hyperlipidemia: Qualified Codes: E78.5 - Hyperlipidemia, unspecified (3) Hypertension: Qualified Codes: I10 - Essential (primary) hypertension Ajay Gomes MD Feb 19, 2018 08:25
[2018-02-19] MEDS ORDERED: ASA325 PO (08:29)
[2018-02-19] MEDS ORDERED: ATOR20TA15 PO (08:29)
[2018-02-19] MEDS: METOPROLOL TARTRATE 25 MG TAB PO SCH (08:54)
[2018-02-19] MEDS ORDERED: HYDROCORTISONE 10 MG TAB PO SCH (09:00)
[2018-02-19] MEDS ORDERED: ALLOPURINOL 300 MG TAB PO SCH (09:00)
[2018-02-19] MEDS ORDERED: amLODIPine BESYLATE 5 MG TAB PO SCH (09:00)
[2018-02-19] MEDS ORDERED: FLUDROCORTISONE ACETATE 0.1 MG TAB PO SCH (09:00)
[2018-02-19] MEDS ORDERED: ASPIRIN 325 MG TAB PO SCH (09:00)
[2018-02-19] MEDS ORDERED: ASPIRIN 81 MG CHEW TAB PO SCH (09:00)
[2018-02-19] MEDS ORDERED: CLOPIDOGREL 75 MG TAB PO SCH ×2 (09:00)
[2018-02-19] MEDS ORDERED: ATORVASTATIN 20 MG TAB PO SCH (21:00)
== END 2018-02-19 09:55 | disposition home or self-care (01) | DRG 247 ==
LOC: HCIS 11:19
PROVIDERS: ADMIT Internal Medicine Cardiovascular Disease; ATTEND Internal Medicine Cardiovascular Disease
PROC: B2111ZZ Fluoroscopy of Multiple Coronary Arteries using Low Osmolar Contrast (ICD-10-PCS; 2018-02-18)
PROC: 027135Z Dilation of Coronary Artery, Two Arteries with Two Drug-eluting Intraluminal Devices, Percutaneous Approach (ICD-10-PCS; principal; 2018-02-18 13:00)
DX: I25.110 Atherosclerotic heart disease of native coronary artery with unstable angina pectoris (principal); I10 Essential (primary) hypertension; E78.5 Hyperlipidemia, unspecified; E03.9 Hypothyroidism, unspecified; M10.9 Gout, unspecified; Z85.118 Personal history of other malignant neoplasm of bronchus and lung; Z85.858 Personal history of malignant neoplasm of other endocrine glands; Z95.5 Presence of coronary angioplasty implant and graft
CPT/HCPCS: 80048; 80061; 82550; 85002; 85025; 85610; 92928; 92929; 93454; 93571; 99152; 99153; C1725; C1769; C1874; C1887; C1893; J0153; J1644; J2250; J3246; J7030; Q9967